=== PATIENT | female | born 1945 | race Caucasian/White ===

== ENCOUNTER → 2016-05-20 08:24 | Outpatient (CLI) | payer MEDICARE, BC ==
[2011-04-24 11:15] VITALS: BMI 21.3
== END | disposition home or self-care (01) ==
LOC: D.CT 08:00 → D.MRI 08:00 → D.CT 08:24
DX: M54.6 Pain in thoracic spine (principal)

== ENCOUNTER → 2017-07-26 13:28 | Outpatient (CLI) | payer MEDICARE, BC ==
[2011-04-24 11:15] VITALS: BMI 21.3
== END | disposition home or self-care (01) ==
LOC: D.MRI 13:28
DX: M54.6 Pain in thoracic spine (principal)

== ENCOUNTER 2017-12-21 16:12 | Observation (INO) | payer MEDICARE, BC ==
[~2017-12-21] VITALS: Ht 172.7 cm; Wt 55.0 kg
--- NOTE | ~2017-12-21 | OP ---
PATIENT NAME: RICARDO SANCHEZ MEDICAL RECORD: [id number] :43 LOCATION:[facility] ADMISSION DATE:12/21/17 SURGEON: JUAN C LAYTON MD DATE OF OPERATION: 12/22/2017 PROCEDURES: 1. Left heart catheterization. 2. Selective coronary angiography. 3. Left ventriculogram. INDICATION: Chest pain. PROCEDURE IN DETAIL: After informed consent was obtained and after a detailed description of the risks, benefits as well as alternative therapies, the patient elected to proceed with angiogram and heart catheterization. The right femoral area was prepped and draped in normal sterile fashion. Right femoral artery was cannulated via modified Seldinger technique with placement of 5-Estonian sheath. All catheters exchanged through this sheath. FINDINGS: Left ventriculogram was performed in standard 30-degree MCCLENDON view, reveals good cardiac wall motion throughout all segments. Overall ejection fraction estimated 60%. SELECTIVE CORONARY ANGIOGRAPHY: Left main, left anterior descending, left circumflex, right coronary artery are all smooth-walled vessels with no angiographic evidence of coronary artery disease. OVERALL IMPRESSION: 1. No angiographic evidence of coronary artery disease. 2. Normal left heart pressures. 3. Normal left ventricular systolic function. Chest pain is noncardiac in etiology. No further cardiac workup needs to be ascertained. TRANSINT:[id number] Voice Confirmation ID: [id number] DOCUMENT ID: [id number] JUAN C LAYTON MD at 1950 CC: [id number] DICTATION DATE: 12/22/17 1338 FORMING YARDAGE CONTROL OPERATOR: 12/22/17 1344 DIS IN 12/22/17 [address] [place] [address]
--- NOTE | ~2017-12-21 | DS ---
PATIENT:RICARDO JULIAN :43 MEDICAL RECORD: [id number] DISCHARGE SUMMARY ADMISSION DATE: 12/21/17 DISCHARGE DATE: 12/22/17 DATE OF DISCHARGE: 12/22/2017. DIAGNOSES: 1. Chest pain. 2. COPD. 3. Hypertension. 4. Normal cardiac catheterization this admission. HOSPITAL COURSE: Ms. Julian presents with chest pain, shortness of breath; however, cardiac catheterization is normal, most likely secondary to her chronic COPD, discharged home with no change in her medications. TRANSINT:[id number] Voice Confirmation ID: [id number] DOCUMENT ID: [id number] JUAN C LAYTON MD at 1950 CC: [id number] DICTATION DATE: 12/22/17 1337 LATIN AMERICAN STUDIES DIRECTOR: 12/22/17 1345 DIS IN 12/22/17 [id number] [place] [address]
--- NOTE | ~2017-12-21 | HP ---
PATIENT: RICARDO JULIAN MEDICAL RECORD: [id number] ACCOUNT: [id number] LOCATION:[address] : 43 ADMISSION DATE: 12/21/17 PCP: JOSÉ MIGUEL SUNSHINE MD HISTORY AND PHYSICAL EXAMINATION ADMITTING DIAGNOSES: 1. Chest pain compatible with unstable angina. 2. CONTRAST ALLERGY. 3. Chronic obstructive pulmonary disease. HISTORY OF PRESENT ILLNESS: Ms. Julian has no history of ischemic heart disease. She gets a chest pressure and extreme shortness of breath with any minimal exertion. This has been going on for 2 weeks in a rapidly progressive fashion. Two weeks ago, it took moderate exertion for her to get the chest pressure, now with even walking across the room she gets very typical anginal chest pressure radiating to her back and extreme shortness of breath. Her EKG is with no acute ST-T abnormalities. PHYSICAL EXAMINATION: GENERAL APPEARANCE: Well-nourished, well-developed, appears stated age. Level of distress, comfortable. PSYCHIATRIC: Mental status, alert, normal affect. Orientation, oriented to time, place and person. EYES: Lids and conjunctiva, noninjected. No discharge, no pallor. ENT: Lips, teeth, gums, normal dentition. Oropharynx, no cyanosis, no pallor. NECK: Carotid arteries, bilateral normal upstroke, no bruits, no thrills. JUGULAR VEINS: No jugular venous pressure or distention. CERVICAL LYMPH NODES: Nontender, nonenlarged. THYROID: Not enlarged. Nontender. No nodules. LUNGS: Respiratory effort, unlabored. CHEST: Normal curvature. No thoracic deformity. No chest wall tenderness. Percussion, resonant. Auscultation, clear. No wheezes, no rales, no rhonchi. CARDIOVASCULAR: Precordial exam, nondisplaced. No heaves or pericardial thrills. Rate and rhythm, regular. Heart sounds, normal S1, normal S2. No S3, no gallop, no rub. Systolic murmur, not heard. Diastolic murmur, not heard. EXTREMITIES: No cyanosis, no edema. Peripheral pulses, full and equal in all extremities, except as noted. No bruits appreciated. ABDOMEN: Soft, nondistended. Normal aorta. No bruit. Nontender. No masses. Liver, nontender, no hepatomegaly. Spleen, nontender, no splenomegaly. MUSCULOSKELETAL: No joint tenderness. No joint swelling. No erythema. NEUROLOGICAL: Normal gait, normal strength, normal tone. SKIN: Warm and dry. OVERALL IMPRESSION: Chest pressure in an increasing fashion. We will premedicate with prednisone, proceed with coronary angiography in the a.m. Further care depends upon the findings of the angiography. We will continue the lisinopril for her hypertension as well as the clonidine, continue her Plavix that she has and add aspirin. TRANSINT:[id number] Voice Confirmation ID: [id number] DOCUMENT ID: [id number] HISTORY AND PHYSICAL [id number] RICARDO JULIAN JEFFREY MD at 1335 CC: [id number] DICTATION DATE: 12/21/171809 FORK OPERATOR: 12/21/17 1843 ADM IN [facility] [address] [place] [address]
--- NOTE | ~2017-12-21 | HEMODYNAMI ---
PATIENT:RICARDO SANCHEZ MEDICAL RECORD: [id number] : 43 LOCATION:D. D.2126 ADMISSION DATE: 12/21/17 Generatedon:12/22/201713:38 Patient name: RICARDO SANCHEZ Patient #: [id number] SSN: D OB: 1945 Date of study: 12/22/2017 Page: Of Hemodynamic Procedure Report Patient Data Patient Demographics Procedure consent was obtained First Name: RICARDO Gender: Female Last Name: LAURA : 1945 Middle Initial: MORALES Age: 72 year(s) Patient #: [id number] Race: Unknown Additional ID: [id number] Contact details [address]: [address] [place] [address] [place] State: [place] City: [place] Zip code: [address] Past Medical History Allergies Allergen Reaction Date Comments Reported IV contrast dye 12/22/2017 Morphine 12/22/2017 Admission Admission Data Admission Date: 12/21/2017 Admission Time: 18:58 Admit Source: Other Room #: D.2126 Lab Results Lab Result Date: 12/22/2017 Lab Result Time: 0:00 Biochemistry Name Units Result Min Max BUN mg/dl 15 --(--*-)-- 7 18 Creatinine mg/dl 0.8 --(-*--)-- 0.6 1.3 CBC Name Units Result Min Max Hemoglobin g/dl 14.8 --(-*--)-- 13.5 17.5 Procedure Procedure Types Cath Procedure Diagnostic Procedure LHC LHC w/Coronaries Procedure Description Procedure Date Procedure Date: 12/22/2017 Procedure Start Time: 13:26 Procedure End Time: 13:37 Procedure Staff Name Function Alexy Lua MD Performing Physician Arturo Palacios RT Monitor Darshan Romero RT Scrub Jax Anne RN Nurse Procedure Data Cath Procedure Fluoroscopy Diagnostic fluoroscopy Total fluoroscopy Time: 0.9 time: 0.9 min min Diagnostic fluoroscopy Total fluoroscopy dose: dose: 78.31 mGy 78.31 mGy Contrast Material Contrast Material Type Amount (ml) Isovue 300 56 Entry Location Entry Primary Successful Side Size Upsize Upsize Entry Closure Succes sful Closure Location (Fr) 1 (Fr) 2 (Fr) Remarks Device Remarks Femoral Right 5 Fr Exoseal artery Estimated blood loss: 5 ml Diagnostic catheters Device Type Used For End Catheter Placement MULTIPACK Pigtail 5 Fr Procedure catheter MULTIPACK JL 4.0 5Fr Procedure catheter MULTIPACK 3DRC 5Fr Procedure catheter Procedure Complications No complications Procedure Medications Medication Administration Route Dosage 0.9% NaCl I.V. 100 ml/hr Oxygen etCO2 Nasal cannula 2 l/min Heparin Flush Bag added to field 2 bags (1000units/500ml NS) Lidocaine 2% added to field 20 Benadryl I.V. 50 mg Versed I.V. 2 mg Fentanyl I.V. 100 mcg Versed I.V. 1 mg Hemodynamics Rest HGB: 14.8 (g/dl) Heart Rate: 68 (bpm) Snapshots Pre Cath Intra NCS Post Cath Vital Signs Time Heart Resp SPO2 etCO2 NIBP (mmHg) Rhythm Pain Sedation Rate (ipm) (%) (mmHg) Status Level (bpm) 12:47:03 67 21 93 0 123/57(112) NSR 0 (11) 10(A) , No pain 12:51:21 74 21 93 0 118/73(96) NSR 0 (11) 10(A) , No pain 12:55:29 77 27 93 20.9 115/92(106) NSR 0 (11) 10(A) , No pain 12:59:45 74 20 94 18.7 125/69(90) NSR 0 (11) 10(A) , No pain 13:04:01 63 15 93 25.4 103/63(83) NSR 0 (11) 10(A) , No pain 13:08:17 67 17 94 18.7 97/55(75) NSR 0 (11) 10(A) , No pain 13:12:29 67 16 95 17.2 95/58(74) NSR 0 (11) 10(A) , No pain 13:16:39 73 17 95 15.7 94/60(80) NSR 0 (11) 10(A) , No pain 13:20:45 70 19 95 20.9 104/65(84) NSR 0 (11) 10(A) , No pain 13:24:57 68 19 95 23.2 105/62(91) NSR 0 (11) 10(A) , No pain 13:29:05 68 21 95 23.9 96/57(79) NSR 0 (11) 9(A) , No pain 13:33:12 65 19 96 20.2 101/64(85) NSR 0 (11) 9(A) , No pain Medications Time Medication Route Dose Verified Delivered Reason Notes Eff ectiveness by by 13:02:18 0.9% NaCl I.V. 100 Buffie Buffie Per ml/hr Heather Romero RN physician 13:03:21 Oxygen etCO2 2 Buffie Buffie Per Nasal l/min Heather Romero RN physician cannula 13:03:40 Heparin Flush added 2 Jax Jax used for Bag to bags Lorigan Lorigan procedure (1000units/500ml RN RN NS) 13:03:52 Lidocaine 2% added 20ml Jax Jax for local to vial Lorigan Lorigan anesthetic RN RN 13:07:39 Benadryl I.V. 50 mg Jax Jax Per Lorigan Lorigan physician RN RN 13:24:28 Versed I.V. 2 mg Jax Jax for Lorigan Lorigan sedation RN RN 13:24:38 Fentanyl I.V. 100 Jax Jax for mcg Lorigan Lorigan sedation RN RN 13:27:59 Versed I.V. 1 mg Jax Jax for Lorigan Lorigan sedation RN audio/visual manager Log Time Note 12:21:13 Informed consent obtained and on chart 12:21:16 Admit Source: Other 12:21:32 Darshan Romero RT(R) sent for patient. Start room use. 12:21:33 Time tracking: Regular hours (M-F 7:00 - 5:00) 12:21:37 Plan of Care:Hemodynamics will remain stable., Cardiac rhythm will remain stable., Comfort level will be maintained., Respiratory function will remain adequate., Patient/ family verbilizes understanding of procedure., Procedure tolerated without complication., Recovers from procedure without complications.. 12:34:51 Patient received from PCU to CCL 3 Alert and oriented. Tansferred to table in Supine position. 12:34:52 Warm blankets applied, and jessica hugger turned on for patient comfort. 12:34:53 Correct patient and procedure confirmed by team. 12:34:53 ECG and BP/O2 sat monitors applied to patient. 12:34:54 Pre-procedure instructions explained to patient. 12:34:55 Pre-op teaching completed and patient verbalized understanding. 12:34:56 Family in waiting room. 12:34:57 Patient NPO since Midnight. 12:38:39 Patient allergic to IV contrast dye 12:38:46 Patient allergic to Morphine 12:38:48 Is the patient allergic to Iodine/contrast media? Yes. 12:38:51 Was the patient premedicated? Yes 12:38:55 Is patient on blood thinner?Yes 12:38:58 ACC The patient was administered the following blood thiners within the last 24 hours: ACCPlavix 12:39:03 Patient diabetic? No. 12:39:04 ----Pre-sedation anethsthesia assessment.---- 12:39:07 Previous problem with sedation/anesthesia? No ? 12:39:08 Snore? Yes 12:39:09 Sleep apnea? Yes 12:39:11 Deviated septum? No 12:39:12 Opens mouth fully? Yes 12:39:13 Sticks out tongue? Yes 12:39:25 Airway obstruction? Yes COPD, EMPYHZEMIA 12:39:41 Dentures? Yes IN TIGHT 12:39:44 Pre procedure: right dorsailis pedis pulse 1+ Palpable, but thready & weak; easily obliterated 12:41:51 Vital chart was started 12:41:56 Rhythm: sinus rhythm 12:41:57 Full Disclosure recording started 12:42:10 H&P Date Dictated: 12/21/2017 Within 30 days and on chart.. 12:44:09 Modified Neftaly's test Ulnar > 7 seconds. 12:44:12 Patient pain scale 0/10 ?. 12:44:38 IV patent on arrival in right antecubital with 0.9% NaCl at 10ml/hr. 12:45:22 Lab Result : BUN 15 mg/dl 12:45:22 Lab Result : Creatinine 0.8 mg/dl 12:45:22 Lab Result : Hemoglobin 14.8 g/dl 12:45:26 Lab results completed and on chart. 12:45:29 Right groin area was prepped with chlora-prep and draped in sterile fashion 12:45:31 Alarms reviewed by R. N. 12:45:31 Sharps counted by scrub and verified by R.N. 12:52:32 Use device set Femoral Dx 12:52:36 Bag Decanter (2002) opened to sterile field. 12:52:36 ACIST Syringe (59205) opened to sterile field. 12:52:40 Medline Cath Pack ([id number]) opened to sterile field. 12:52:41 DIAGNOSTIC WIRE .035 260cm J wire (400422) opened to sterile field. 12:52:41 ACIST Hand Control (79480) opened to sterile field. 12:52:42 ACIST Manifold (13808) opened to sterile field. 12:52:43 Tegaderm 4 x 4 (1626W) opened to sterile field. 12:52:44 SHEATH Prelude 5Fr 0.035 (BOH-9I-00-035) opened to sterile field. 12:52:55 Baseline sample Acquired. 13:02:18 0.9% NaCl 100 ml/hr I.V. was administered by Xiang Romero RN; Per physician; 13:03:21 Oxygen 2 l/min etCO2 Nasal cannula was administered by Xiang Romero RN; Per physician; 13:03:40 Heparin Flush Bag (1000units/500ml NS) 2 bags added to field was administered by Jax Anne RN; used for procedure; 13:03:52 Lidocaine 2% 20ml vial added to field was administered by Jax Anne RN; for local anesthetic; 13:07:39 Benadryl 50 mg I.V. was administered by Jax Anne RN; Per physician; 13:08:05 Zero performed for pressure channel P1 13:08:14 Zero performed for pressure channel P1 13:08:21 Zero performed for pressure channel P1 13:08:27 Zero performed for pressure channel P1 13:23:55 Physician arrived 13::55 --------ALL STOP TIME OUT------ 13:23:56 Final Timeout: patient, procedure, and site verified with staff and physician. All members of the team are in agreement. 13:23:57 Right groin site verified by team. 13:24:02 Physical assessment completed. ASA score P 2 - A patient with mild systemic disease as per Alexy Lua MD. 13:24:04 Sedation plan: IV Moderate Sedation Medication:Versed, Fentanyl 13::28 Versed 2 mg I.V. was administered by Jax Anne RN; for sedation; ::38 Fentanyl 100 mcg I.V. was administered by Jax Anne RN; for sedation; 13:25:28 DIAGNOSTIC Multipack 5Fr catheter set (MV0386) opened to sterile field. 13::34 Procedure started. 13:26:40 Local anesthetic to right femoral artery with Lidocaine 2% by Alexy Lua MD.INITIAL ACCESS ONLY 13:26:50 A 5 Fr sheath was inserted into the Right Femoral artery 13:27:06 A MULTIPACK Pigtail 5 Fr catheter was advanced over the wire and used for Procedure. 13:27:59 Versed 1 mg I.V. was administered by Jax Anne RN; for sedation; ::04 LV gram done using MCCLENDON 13::08 Injector settings: Ml/sec: 10, Volume: 20, 13:28:24 EF : 60 % 13:28:28 LV hemodynamics recorded. 13:28:30 Catheter exchanged over wire. 13:28:34 A MULTIPACK JL 4.0 5Fr catheter was advanced over the wire and used for Procedure. 13:29:23 LCA angiography performed. 13:30:23 Catheter exchanged over wire. 13:30:32 A MULTIPACK 3DRC 5Fr catheter was advanced over the wire and used for Procedure. 13:31:10 RCA angiography performed. 13:31:11 Catheter removed. 13:31:13 EXOSEAL 5Fr (EX500) opened to sterile field. 13:31:48 Sheath removed intact; hemostasis achieved with Exoseal to the Right Femoral artery. 13:31:50 Procedure ended.(Physican Out) 13:33:42 Fluoroscopy time 00.90 minutes. 13:33:46 Flurop Dose total: 78.31 13:33:46 Fluoroscopy dose: 78.31 mGy 13:34:02 Contrast amount:Isovue 300 56ml. 13:34:03 Sharps counted by scrub and verified by R.N. 13:34:04 Insertion/operative site no bleeding no hematoma. 13:34:07 Post-op/insertion site Right Femoral artery dressed using a 4 x 4 and Tegaderm. 13:34:10 Post right femoral artery:stable, soft, clean and dry 13:34:12 Post Procedure Pulses reassessed and unchanged 13:34:14 Post-procedure physical assessment completed. ASA score P 2 - A patient with mild systemic disease as per Alexy Lua MD. 13:34:17 Post procedure rhythm: unchanged. 13:34:18 Estimated blood loss: 5 ml 13:34:19 Post procedure instruction explained to patient.Patient verbalizes understanding. 13:34:20 Patient needs reinforcement of post procedure teaching. 13:35:05 IV Extension Set opened to sterile field. 13:35:19 Procedure and supply charges have been captured, reviewed, submitted and are correct. 13:35:21 Procedure Complication : No complications 13:35:23 Vital chart was stopped 13:35:23 See physician's report for complete and final results. 13:37:42 Report given to Pre/Post Procedure Room. 13:37:44 Patient transfered to Pre/Post Procedure Room with Stretcher. 13:37:46 Procedure ended. 13:37:46 Full Disclosure recording stopped 13:37:50 End room use (Document Last) Device Usage Item Name Manufacture Quantity Catalog Number Hospital Part Current M inimal Lot# / Charge Number Stock Stock Serial# Code Bag Decanter Microtek 1 195811 67948 131609 5 () Medical Inc. ACIST Syringe Acist 1 95492 050006 594744 247661 2 0 (88836) Medical Systems Inc Medline Cath Cardinal 1 [id number] 506052 86091 144391 5 Pack Health ([id number]) DIAGNOSTIC WIRE St Derick 1 295221 892108 059048 801475 3 0 .035 260cm J wire (340947) ACIST Hand Acist 1 12434 211269 974824 910847 5 Control (27645) Medical Systems Inc ACIST Manifold Acist 1 33550 401406 946618 889514 5 (86511) Medical Systems Inc Tegaderm 4 x 4 3M 1 1626W 284193 385914 970045 5 (1626W) SHEATH Prelude Merit 1 XBE-2T-75-035 890555 130781 775556 5 5Fr 0.035 Medical (LUH-4W-91-035) MULTIPACK Cardinal 1 493978 5 Pigtail 5 Fr Health catheter MULTIPACK JL Cardinal 1 242089 5 4.0 5Fr Health catheter DIAGNOSTIC Cardinal 1 [id number] 901208 67455 316035 3 0 Multipack 5Fr Health catheter set (TB1234) MULTIPACK 3DRC Cardinal 1 952998 5 5Fr catheter Health EXOSEAL 5Fr Cardinal 1 EX500 580127 146682 890600 1 0 (EX500) Health IV Extension Hospira 1 57402-86 796825 39199 089344 5 Set Signature Audit Comins Stage Time Signature Unsigned Intra-Procedure 12/22/2017 Arturo Palacios 1:38:14 PM RT(R) Signatures Monitor : Arturo Palacios RT Signature : Date : Time : [address] [address]
[2017-12-21] MEDS ORDERED: LISINOPRIL5 MG PO (16:17)
[2017-12-21] MEDS ORDERED: PLAVIX75 MG PO ×2 (16:18→18:43)
[2017-12-21] MEDS ORDERED: HYDROCODON-ACE1 EAC7 PO (16:18)
[2017-12-21] MEDS ORDERED: IPRAT-ALBUT 0.5-3 ML UPD (16:18)
[2017-12-21] MEDS ORDERED: SYMBICORT 16010.2 GM INH (16:19)
[2017-12-21] MEDS ORDERED: CYCLOBENZAPRINE10 MG PO (16:19)
[2017-12-21] MEDS ORDERED: CATAPRES0.1 MG PO (16:19)
[2017-12-21 16:34] VITALS: BP 155/68
[2017-12-21 16:44] LABS: BASOPHILS 1.4 % (0-2); EOSINOPHILS 4.4 % (0-7); HEMATOCRIT 44.8 % (36.0-48.0); HEMOGLOBIN 14.8 g/dL (12-16); IMMATURE GRANULOCYTES 0.1 % (0-5); LYMPHOCYTES 30.5 % (15-50); MCH 31.2 pg (26.0-34.0); MCV 94.5 fL (80.0-100.0); MEAN PLATELET VOLUME 11.6 fL (7.4-10.4); NEUTROPHILS 55.6 % (40-80); PLATELET COUNT 196 10x3/uL (130-400); RBC 4.74 10x6/uL (4.00-5.40); RDW 15.5 % (11.5-14.5); WBC 8.8 10x3/uL (4.8-10.8)
[2017-12-21 17:17] LABS: ALBUMIN 3.6 g/dL (3.4-5.0); ALKALINE PHOSPHATASE 75 U/L (46-116); ALT (SGPT) 20 U/L (10-68); BILIRUBIN - TOTAL 0.31 mg/dL (0.2-1.3); CALC OSMOLALITY 279 mosm/kg (275-300); CALCIUM 8.6 mg/dL (8.5-10.1); CARBON DIOXIDE 23.5 mmol/L (21.0-32.0); CHLORIDE - SERUM 106 mmol/L (98-107); CREATININE - SERUM 0.8 mg/dL (0.6-1.3); GLUCOSE 90 mg/dL (74-106); POTASSIUM - SERUM 3.8 mmol/L (3.5-5.1); PROTEIN - SERUM 6.8 g/dL (6.4-8.2); SODIUM 140 mmol/L (136-145); UREA NITROGEN 15 mg/dL (7-18); eGFR NON AFRICAN AMERICAN 74 mL/min (90-120)
[2017-12-21 17:20] LABS: CKMB 2.3 U/L (0.0-3.6); CREATINE KINASE 60 UL (21-215); PRO BNP 117 pg/mL (0-125)
[2017-12-21 17:22] LABS: TROPONIN-I < 0.017 ng/mL (0.000-0.060)
[2017-12-21] MEDS ORDERED: FLUTICASONE PRO16 GM NASAL (18:45)
[2017-12-21] MEDS ORDERED: SINGULAIR 4 MG P4 MG PO (18:46)
[2017-12-21] MEDS ORDERED: MUCINEX DM ER1 EAC1 PO (18:49)
[2017-12-21 21:10] VITALS: BP 155/68
[2017-12-22 02:02] VITALS: BP 126/82
[2017-12-22 02:33] VITALS: BP 126/82; Ht 172.7 cm; Wt 55.0 kg
[2017-12-22] MEDS ORDERED: FIORICET-COD 51 EACH PO (02:52)
[2017-12-22] MEDS ORDERED: FLUTICASONE PRO16 GM NASAL (02:53)
[2017-12-22 06:23] VITALS: BP 137/82
[2017-12-22 07:54] VITALS: BP 113/82
[2017-12-22 08:02] LABS: ALBUMIN 3.6 g/dL (3.4-5.0); ALKALINE PHOSPHATASE 76 U/L (46-116); ALT (SGPT) 19 U/L (10-68); CALC OSMOLALITY 281 mosm/kg (275-300); CALCIUM 8.9 mg/dL (8.5-10.1); CARBON DIOXIDE 26.6 mmol/L (21.0-32.0); CHLORIDE - SERUM 107 mmol/L (98-107); CKMB 2.3 U/L (0.0-3.6); CREATINE KINASE 54 UL (21-215); CREATININE - SERUM 0.7 mg/dL (0.6-1.3); GLUCOSE 107 mg/dL (74-106); PROTEIN - SERUM 6.9 g/dL (6.4-8.2); SODIUM 141 mmol/L (136-145); UREA NITROGEN 15 mg/dL (7-18); eGFR NON AFRICAN AMERICAN 87 mL/min (90-120)
[2017-12-22 08:05] LABS: POTASSIUM - SERUM 4.8 mmol/L (3.5-5.1); TROPONIN-I < 0.017 ng/mL (0.000-0.060)
[2017-12-22 08:18] LABS: HEMATOCRIT 44.9 % (36.0-48.0); LYMPHOCYTES 22.1 % (15-50); MCH 30.9 pg (26.0-34.0); MCHC 33.4 g/dL (31.0-37.0); MCV 92.6 fL (80.0-100.0); MEAN PLATELET VOLUME 12.7 fL (7.4-10.4); NEUTROPHILS 72.4 % (40-80); PLATELET COUNT 196 10x3/uL (130-400); RBC 4.85 10x6/uL (4.00-5.40); RDW 14.7 % (11.5-14.5)
[2017-12-22 08:21] LABS: WBC 5.7 10x3/uL (4.8-10.8)
[2017-12-22 11:04] VITALS: BP 90/59
== END 2017-12-22 16:37 | disposition home or self-care (01) ==
LOC: D.ER 16:12 → D.EDHOLD 18:58 → D.M2 18:58 → OBSVTIME 21:00 → D.CLR 12-22 14:10
PROVIDERS: Family Medicine
DX: R07.89 Other chest pain (principal); I10 Essential (primary) hypertension; Z91.041 Radiographic dye allergy status; J44.9 Chronic obstructive pulmonary disease, unspecified

== ENCOUNTER → 2017-12-27 14:34 | Outpatient (CLI) | payer MEDICARE, BC ==
[2017-12-22 02:33] VITALS: BMI 18.4
[~2017-12-27 14:34] MED LIST: CATAPRES0.1 MG PO; CYCLOBENZAPRINE10 MG PO; FIORICET-COD 51 EACH PO; FLUTICASONE PRO16 GM NASAL; HYDROCODON-ACE1 EAC7 PO; IPRAT-ALBUT 0.5-3 ML UPD; LISINOPRIL5 MG PO; MUCINEX DM ER1 EAC1 PO; PLAVIX75 MG PO; SINGULAIR 4 MG P4 MG PO; SYMBICORT 16010.2 GM INH
== END | disposition home or self-care (01) ==
LOC: D.CT 14:34
DX: Z91.89 Other specified personal risk factors, not elsewhere classified (principal)

== ENCOUNTER → 2018-03-26 10:45 | Outpatient (CLI) | payer MEDICARE, BC ==
[2017-12-22 02:33] VITALS: BMI 18.4
== END | disposition home or self-care (01) ==
LOC: D.RT 10:45
DX: J44.9 Chronic obstructive pulmonary disease, unspecified (principal)

== ENCOUNTER 2018-04-12 16:20 | Inpatient (IN) | payer MEDICARE, BC ==
[~2018-04-12] VITALS: Ht 170.2 cm; Wt 54.9 kg
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
[2018-04-12 17:49] VITALS: BP 138/78; BMI 19.0
[2018-04-12 20:00] VITALS: BP 90/42
[2018-04-12 21:45] LABS: BASOPHILS 0.1 % (0-2); EOSINOPHILS 0.3 % (0-7); HEMATOCRIT 40.2 % (36.0-48.0); HEMOGLOBIN 13.3 g/dL (12-16); IMMATURE GRANULOCYTES 0.3 % (0-5); LYMPHOCYTES 11.4 % (15-50); MCH 31.7 pg (26.0-34.0); MCHC 33.1 g/dL (31.0-37.0); MCV 95.9 fL (80.0-100.0); MEAN PLATELET VOLUME 11.7 fL (7.4-10.4); MONOCYTES 8.7 % (2-11); NEUTROPHILS 79.2 % (40-80); PLATELET COUNT 184 10x3/uL (130-400); RBC 4.19 10x6/uL (4.00-5.40); RDW 13.5 % (11.5-14.5); WBC 16.4 10x3/uL (4.8-10.8)
[2018-04-12 21:56] LABS: ALBUMIN 2.9 g/dL (3.4-5.0); ANION GAP 14.6 mmol/L (8-16); BILIRUBIN - TOTAL 0.78 mg/dL (0.2-1.3); CALCIUM 8.5 mg/dL (8.5-10.1); CARBON DIOXIDE 24.1 mmol/L (21.0-32.0); CREATININE - SERUM 0.9 mg/dL (0.6-1.3); POTASSIUM - SERUM 3.7 mmol/L (3.5-5.1); PROTEIN - SERUM 6.1 g/dL (6.4-8.2)
[2018-04-13] VITALS: BP 94/46
[2018-04-13 04:00] VITALS: BP 100/56
[2018-04-13 04:24] LABS: BASOPHILS 0.1 % (0-2); EOSINOPHILS 0.3 % (0-7); HEMATOCRIT 39.1 % (36.0-48.0); HEMOGLOBIN 12.7 g/dL (12-16); IMMATURE GRANULOCYTES 0.3 % (0-5); LYMPHOCYTES 12.4 % (15-50); MCH 31.3 pg (26.0-34.0); MCHC 32.5 g/dL (31.0-37.0); MCV 96.3 fL (80.0-100.0); MONOCYTES 10.5 % (2-11); NEUTROPHILS 76.4 % (40-80); PLATELET COUNT 177 10x3/uL (130-400); RBC 4.06 10x6/uL (4.00-5.40); RDW 13.6 % (11.5-14.5); WBC 15.6 10x3/uL (4.8-10.8)
[2018-04-13 04:41] LABS: ALBUMIN 2.6 g/dL (3.4-5.0); ANION GAP 12.9 mmol/L (8-16); BILIRUBIN - TOTAL 0.75 mg/dL (0.2-1.3); CARBON DIOXIDE 22.6 mmol/L (21.0-32.0); CREATININE - SERUM 0.8 mg/dL (0.6-1.3); POTASSIUM - SERUM 3.5 mmol/L (3.5-5.1); PROTEIN - SERUM 5.6 g/dL (6.4-8.2)
[2018-04-13 07:00] VITALS: BP 96/53
[2018-04-13 10:34] VITALS: Ht 170.2 cm; Wt 54.9 kg
[2018-04-13 13:57] VITALS: BP 102/56
[2018-04-13 16:11] VITALS: BP 100/56
[2018-04-13 20:00] VITALS: BP 100/54
[2018-04-14 04:00] VITALS: BP 128/53
[2018-04-14 05:39] LABS: BASOPHILS 0.1 % (0-2); EOSINOPHILS 0 % (0-7); HEMATOCRIT 38.5 % (36.0-48.0); HEMOGLOBIN 12.3 g/dL (12-16); IMMATURE GRANULOCYTES 0.5 % (0-5); LYMPHOCYTES 7.1 % (15-50); MCH 31.2 pg (26.0-34.0); MCHC 31.9 g/dL (31.0-37.0); MCV 97.7 fL (80.0-100.0); MEAN PLATELET VOLUME 11.7 fL (7.4-10.4); MONOCYTES 3.6 % (2-11); NEUTROPHILS 88.7 % (40-80); PLATELET COUNT 183 10x3/uL (130-400); RBC 3.94 10x6/uL (4.00-5.40); RDW 13.7 % (11.5-14.5)
[2018-04-14 05:44] LABS: WBC 9.9 10x3/uL (4.8-10.8)
[2018-04-14 05:56] LABS: ALBUMIN 2.4 g/dL (3.4-5.0); ALKALINE PHOSPHATASE 74 U/L (46-116); BILIRUBIN - TOTAL 0.32 mg/dL (0.2-1.3); CALCIUM 8.5 mg/dL (8.5-10.1); CARBON DIOXIDE 20.6 mmol/L (21.0-32.0); CHLORIDE - SERUM 110 mmol/L (98-107); CREATININE - SERUM 0.7 mg/dL (0.6-1.3); PROTEIN - SERUM 5.7 g/dL (6.4-8.2); SODIUM 140 mmol/L (136-145); UREA NITROGEN 9 mg/dL (7-18); eGFR NON AFRICAN AMERICAN 87 mL/min (90-120)
[2018-04-14 05:58] LABS: ALT (SGPT) 33 U/L (10-68); CALC OSMOLALITY 281 mosm/kg (275-300); GLUCOSE 175 mg/dL (74-106)
[2018-04-14 10:19] VITALS: BP 108/53
[2018-04-14] MEDS ORDERED: LEVAQUIN750 MG PO (13:20)
[2018-04-14] MEDS ORDERED: PREDNISONE10 MG PO (13:21)
--- NOTE | 2018-04-16 09:03 | MORECARE ---
CASE MANAGEMENT DISCHARGE SUMMARY PATIENT: RICARDO SANCHEZ UNIT: [id number] ADM DATE: 04/12/18 AGE: 72 : 44 SEX: F ROOM/BED: D.2106 AUTHOR: LAW FERNANDEZ PHYSICIAN: REFERRING PHYSICIAN: JOSÉ MIGUEL SUNSHINE MD DATE OF SERVICE: 04/16/18 Discharge Plan Patient Name: RICARDO SANCHEZ Facility: [facility]:[place] : 1945 Planned Disposition: Home Anticipated Discharge Date: 04/14/18 Discharge Date: 04/14/2018 Expected LOS: 2 Initial Reviewer: [email or web address] Initial Review Date: 04/16/2018 Generated: 04/16/18 10:03 am Patient Name: RICARDO SANCHEZ Page [phone] at 0903 All edits/amendments must be made on the electronic document DICTATION DATE: 04/16/18901 DEXTRINE MIXER: DM 04/16/18901 RPT#: [id number] DC DATE:04/14/18 STATUS: DIS IN [facility] [address] [place] [address] END OF REPORT
== END 2018-04-14 15:50 | disposition home or self-care (01) | DRG 190 ==
LOC: D.M2 16:20
PROVIDERS: Family Medicine; ADMIT Family Medicine Adult Medicine
DX: J44.0 Chronic obstructive pulmonary disease with (acute) lower respiratory infection (principal); J18.1 Lobar pneumonia, unspecified organism; J40 Bronchitis, not specified as acute or chronic; E11.9 Type 2 diabetes mellitus without complications; I10 Essential (primary) hypertension; M81.0 Age-related osteoporosis without current pathological fracture; G43.909 Migraine, unspecified, not intractable, without status migrainosus; Z86.73 Personal history of transient ischemic attack (TIA), and cerebral infarction without residual deficits

== ENCOUNTER 2018-12-21 12:51 | Emergency (ER) | payer MEDICARE, BC ==
[~2018-12-21] VITALS: Ht 170.2 cm; Wt 54.5 kg
[~2018-12-21 12:51] MED LIST changes: +LEVAQUIN750 MG PO; +PREDNISONE10 MG PO
[2018-12-21 12:53] VITALS: Ht 170.2 cm; Wt 54.5 kg
[2018-12-21 13:47] LABS: BASOPHILS 0.5 % (0-2); EOSINOPHILS 1.4 % (0-7); HEMATOCRIT 40.3 % (36.0-48.0); HEMOGLOBIN 13.3 g/dL (12-16); IMMATURE GRANULOCYTES 0.2 % (0-5); LYMPHOCYTES 19.7 % (15-50); MCH 30.4 pg (26.0-34.0); MEAN PLATELET VOLUME 11.7 fL (7.4-10.4); MONOCYTES 5.6 % (2-11); NEUTROPHILS 72.6 % (40-80); PLATELET COUNT 212 10x3/uL (130-400); RBC 4.38 10x6/uL (4.00-5.40); RDW 14.1 % (11.5-14.5); WBC 8.5 10x3/uL (4.8-10.8)
[2018-12-21 13:56] LABS: APTT 28.8 SECONDS (22.8-39.4); INR 1.09 (0.85-1.17); PROTIME 13.6 SECONDS (11.6-15.0)
[2018-12-21 14:04] LABS: ALBUMIN 3.5 g/dL (3.4-5.0); ALKALINE PHOSPHATASE 81 U/L (46-116); ALT (SGPT) 15 U/L (10-68); BILIRUBIN - TOTAL 0.48 mg/dL (0.2-1.3); CALC OSMOLALITY 286 mosm/kg (275-300); CARBON DIOXIDE 28.9 mmol/L (21.0-32.0); CHLORIDE - SERUM 108 mmol/L (98-107); CREATININE - SERUM 0.7 mg/dL (0.6-1.3); POTASSIUM - SERUM 5.2 mmol/L (3.5-5.1); PROTEIN - SERUM 6.4 g/dL (6.4-8.2); SODIUM 145 mmol/L (136-145); UREA NITROGEN 7 mg/dL (7-18); eGFR NON AFRICAN AMERICAN 87 mL/min (90-120)
[2018-12-21 14:10] LABS: GLUCOSE 97 mg/dL (74-106)
[2018-12-21] MEDS ORDERED: BUTALB-APAP-CA1 EACH PO (14:26)
[2018-12-21 16:33] VITALS: BP 186/92
== END 2018-12-21 16:33 | disposition home or self-care (01) ==
LOC: D.ER 12:51
PROVIDERS: Family Medicine
DX: G43.909 Migraine, unspecified, not intractable, without status migrainosus (principal); F17.210 Nicotine dependence, cigarettes, uncomplicated; E11.9 Type 2 diabetes mellitus without complications; I10 Essential (primary) hypertension; J44.9 Chronic obstructive pulmonary disease, unspecified

== ENCOUNTER → 2019-03-12 08:24 | Outpatient (CLI) | payer MEDICARE, BC ==
[2018-12-21 12:53] VITALS: BMI 18.8
[~2019-03-12 08:24] MED LIST changes: +BUTALB-APAP-CA1 EACH PO
== END | disposition home or self-care (01) ==
LOC: D.RT 08:24
PROVIDERS: ATTEND Internal Medicine Pulmonary Disease
DX: J44.9 Chronic obstructive pulmonary disease, unspecified (principal)

== ENCOUNTER → 2019-05-16 10:27 | Outpatient (CLI) | payer MEDICARE, BC ==
[2018-12-21 12:53] VITALS: BMI 18.8
== END | disposition home or self-care (01) ==
LOC: D.RT 10:27
PROVIDERS: ATTEND Internal Medicine Pulmonary Disease
DX: J44.9 Chronic obstructive pulmonary disease, unspecified (principal)

== ENCOUNTER → 2019-06-13 14:03 | Outpatient (CLI) | payer MEDICARE, BC ==
[2018-12-21 12:53] VITALS: BMI 18.8
== END | disposition home or self-care (01) ==
LOC: D.CT 14:03
PROVIDERS: ATTEND Nurse Practitioner Family
DX: R93.89 Abnormal findings on diagnostic imaging of other specified body structures (principal)

== ENCOUNTER 2019-07-01 08:00 | Outpatient (CLI) | payer MEDICARE, BC ==
[2018-12-21 12:53] VITALS: BMI 18.8
[~2019-07-01 08:00] MED LIST changes: -SINGULAIR 4 MG P4 MG PO; +SINGULAIR10 MG PO
[2019-07-01] MEDS ORDERED: GABAPENTIN100 MG PO (15:22)
[2019-07-01] MEDS ORDERED: HYDROCODON-ACE1 EA10 PO (15:23)
[2019-07-01] MEDS ORDERED: VENTOLIN HFA [SP8 GM INH (15:26)
[2019-07-01 16:07] LABS: HEMATOCRIT 40.9 % (36.0-48.0); MCH 29.9 pg (26.0-34.0); MCHC 31.8 g/dL (31.0-37.0); MEAN PLATELET VOLUME 11.5 fL (7.4-10.4); RBC 4.35 10x6/uL (4.00-5.40); RDW 14.6 % (11.5-14.5); WBC 7.4 10x3/uL (4.8-10.8)
[2019-07-01 16:12] LABS: INR 0.92 (0.85-1.17); PROTIME 12.3 SECONDS (11.6-15.0)
[2019-07-01 16:13] LABS: APTT 25.2 SECONDS (22.8-39.4)
[2019-07-01 16:19] LABS: ALBUMIN 3.5 g/dL (3.4-5.0); ALKALINE PHOSPHATASE 72 U/L (30-120); ALT (SGPT) 21 U/L (10-68); BILIRUBIN - TOTAL 0.29 mg/dL (0.2-1.3); CALC OSMOLALITY 286 mosm/kg (275-300); CARBON DIOXIDE 28.3 mmol/L (21.0-32.0); CHLORIDE - SERUM 109 mmol/L (98-107); CREATININE - SERUM 0.7 mg/dL (0.6-1.3); GLUCOSE 87 mg/dL (74-106); POTASSIUM - SERUM 4.8 mmol/L (3.5-5.1); PROTEIN - SERUM 6.6 g/dL (6.4-8.2); SODIUM 144 mmol/L (136-145); UREA NITROGEN 16 mg/dL (7-18); eGFR NON AFRICAN AMERICAN 86 mL/min (90-120)
[2019-07-01 16:48] LABS: BILIRUBIN NEGATIVE (NEGATIVE); GLUCOSE NEGATIVE (NEGATIVE); KETONE NEGATIVE (NEGATIVE); NITRITE NEGATIVE (NEGATIVE); UROBILINOGEN NORMAL (NORMAL)
[2019-07-01 16:50] LABS: RED CELLS - URINE OCC /hpf (0-5); WHITE CELLS - URINE OCC /hpf (NEGATIVE)
== END 2019-07-01 08:01 | disposition home or self-care (01) ==
LOC: D.PAN 08:00 → D.SDCHOLD 07-03 11:30 → EDSTATUS 07-10 11:30 → D.SDCHOLD 07-10 11:30
PROVIDERS: ATTEND Internal Medicine Cardiovascular Disease
DX: I65.29 Occlusion and stenosis of unspecified carotid artery (principal)

== ENCOUNTER 2019-08-13 09:45 | Inpatient (IN) | payer MEDICARE, BC ==
[~2019-08-13] VITALS: Ht 170.2 cm; Wt 60.1 kg
[~2019-08-13 09:45] MED LIST changes: +GABAPENTIN100 MG PO; +HYDROCODON-ACE1 EA10 PO; +VENTOLIN HFA [SP8 GM INH
[2019-08-13 11:14] LABS: APTT 26.7 SECONDS (22.8-39.4); INR 0.93 (0.85-1.17); PROTIME 12.5 SECONDS (11.6-15.0)
[2019-08-13 11:22] LABS: ALBUMIN 3.8 g/dL (3.4-5.0); ALKALINE PHOSPHATASE 88 U/L (30-120); ALT (SGPT) 21 U/L (10-68); BILIRUBIN - TOTAL 0.49 mg/dL (0.2-1.3); CALC OSMOLALITY 278 mosm/kg (275-300); CALCIUM 9.3 mg/dL (8.5-10.1); CARBON DIOXIDE 26.9 mmol/L (21.0-32.0); CHLORIDE - SERUM 104 mmol/L (98-107); CREATININE - SERUM 0.7 mg/dL (0.6-1.3); GLUCOSE 87 mg/dL (74-106); POTASSIUM - SERUM 4.7 mmol/L (3.5-5.1); PROTEIN - SERUM 7.2 g/dL (6.4-8.2); SODIUM 141 mmol/L (136-145); UREA NITROGEN 11 mg/dL (7-18); eGFR NON AFRICAN AMERICAN 86 mL/min (90-120)
[2019-08-13 11:37] LABS: HEMATOCRIT 42.7 % (36.0-48.0); HEMOGLOBIN 13.4 g/dL (12-16); MCH 29.4 pg (26.0-34.0); MCHC 31.4 g/dL (31.0-37.0); MCV 93.6 fL (80.0-100.0); MEAN PLATELET VOLUME 12.1 fL (7.4-10.4); RBC 4.56 10x6/uL (4.00-5.40); RDW 14.5 % (11.5-14.5); WBC 7.6 10x3/uL (4.8-10.8)
[2019-08-13 13:07] LABS: BACTERIA FEW /hpf (NEGATIVE); BILIRUBIN NEGATIVE (NEGATIVE); EPITHELIAL CELLS 0-5 /hpf (0-5); GLUCOSE NEGATIVE (NEGATIVE); KETONE NEGATIVE (NEGATIVE); NITRITE NEGATIVE (NEGATIVE); RED CELLS - URINE RARE /hpf (0-5); UROBILINOGEN NORMAL (NORMAL); WHITE CELLS - URINE 0-5 /hpf (NEGATIVE)
[2019-08-13 13:08] LABS: AMORPHOUS SEDIMENT <1+ /lpf (NONE SEEN)
[2019-08-14] VITALS (37 sets, daily range): BP systolic 98–150; BP diastolic 38–86; BMI 18.3
--- NOTE | 2019-08-14 11:36 | NUR ---
RECEIVED PATIENT FROM OR, PATIENT LETHARGIC BUT AROUSES AND FOLLOWS COMMANDS. ORIENTED X 4, ART LINE TO LEFT RADIAL, ZEROED AND LEVELED, BP 98/50 (64), GOOD WAVEFORM, LEFT IJ CVL WITH PLASMOLYTE INFUSING, RIGHT CAROTID ENDARTECTOMY WITH DRESSING C/D/I, MELIDA DRAIN WITH SMALL AMOUNT OF BLOODY DRAINAGE NOTED, BULB COMPRESSED, DRESSING C/D/I. OSBORN CATH IN PLACE WITH YELLOW CLEAR URINE OUTPUT NOTED. CVP LEVELED AND ZEROED 0. SPO2 - 90% ON NC AT 6LPM. RR - 14, SHALLOW, NON LABORED, BBS - CLEAR, DIMINISHED IN BASES. CM - NSR RATE OF 70, NO ECTOPY NOTED. SPO2 LEFT HEMISPHERE 66% AND RIGHT HEMISPHERE 59%. HEAD TO TOE ASSESSMENT COMPLETED.
--- NOTE | 2019-08-14 12:13 | NUR ---
CVL LEFT IJ DRESSING CHANGED, LEFT HEMISPHERE SPO2 - 71% AND RIGHT HEMISPHERE SPO2 - 65%.
--- NOTE | 2019-08-14 12:18 | NUR ---
XRAY AT ROOM FOR CXR.
--- NOTE | 2019-08-14 12:45 | NUR ---
DR. BOYLE AT ROOM AND PLACED RUSTY CLOSE THORACIC SEAL TO LEFT UPPER CHEST FOR PNEUMOTHORAX. VSS.
--- NOTE | 2019-08-14 13:30 | NUR ---
LEFT HEMISPHERE SPO2 - 75% AND RIGHT HEMISPHERE SPO2 - 73%. PATIENT SFPO2 - 97% ON 4 LPM VIA NC, DECREASED TO 2 LPM WITH SPO2 96%, RESTING QUIETLY, VSS.
--- NOTE | 2019-08-14 14:00 | NUR ---
PATIENT RESTING QUIETLY, EASILY AROUSED. VSS.
--- NOTE | 2019-08-14 14:40 | NUR ---
SPO2 LEFT HEMISPHERE 71%, SPO2 RIGHT HEMISPHERE 70%. VSS.
--- NOTE | 2019-08-14 15:17 | NUR ---
REASSESSMENT COMPLETED. VSS. LEFT HEMISPHERE SPO2 - 76%, RIGHT HEMISPHERE SPO2 -76%.
--- NOTE | 2019-08-14 15:43 | NUR ---
DR. PALOMO AT ROOM UPDATED AND EXAMINES PATIENT.
--- NOTE | 2019-08-14 17:09 | NUR ---
PATIENT RESTING QUIETLY, GIVEN COFFEE PER REQUEST.
--- NOTE | 2019-08-14 18:09 | NUR ---
PATIENT RESTING QUIELTY, VSS. EASILY AROUSED, ALERT AND ORIENTED X 4.
--- NOTE | 2019-08-14 19:26 | NUR ---
PT RECEIVED WITH EYES OPEN. COMPLAINS OF DISCOMFORT WITH PAIN MEDICATION ADMINISTERED BY OUTGOING NURSE, WILL REASSESS AND ADMINISTER PER MAR. VITAL SIGNS STABLE. NO S/S OF DISTRESS. REPOSITIONED PER REQUEST. PT ALERT AND ORIENTED. CALL LIGHT IN REACH. WILL CONTINUE TO OBSERVE.
--- NOTE | 2019-08-14 23:59 | NUR ---
CEREBRAL OXIMITRY 1929- LEFT HEMISPHERE 74% RIGHT HEMISPHERE 78% 2029- 77% 69% 2129- 61% 60% 2229- 75% 77% 2329- 77% 74%
[2019-08-15] VITALS (46 sets, daily range): BP systolic 96–154; BP diastolic 44–76
--- NOTE | 2019-08-15 07:00 | NUR ---
PT REPORT RECEIVED FROM SECURITY COMPLIANCE SPECIALIST NURSE. NO ACUTE SIGNS OF DISTRESS NOTED. SHIFT ASSESSMENT COMPLETED. WILL CONTINUE TO MONITOR
--- NOTE | 2019-08-15 07:18 | NUR ---
cerebral oximitry 0030 LEFT HEMISPHERE 81% RIGHT HEMISPHIRE 75% 0130 83% 75% 0230 66% 65% 0330 74% 72% 0430 74% 72% 0530 75% 74% 0615 73% 70%
--- NOTE | 2019-08-15 08:45 | NUR ---
DR BOYLE'S NURSE AT BEDSIDE. UPDATE GIVEN. NEW ORDERS RECEIVED TO D/C OSBORN AND ART LINE. ALSO ORDERED TO STOP NITRO AND D/C CVP MONITORING.
--- NOTE | 2019-08-15 09:35 | NUR ---
PHYSICAL THERAPY IN ROOM. ASSISTED PT UP INTO BEDSIDE CHAIR. PT TOLERATED WELL. WILL CONTINUE TO MONITOR
--- NOTE | 2019-08-15 10:15 | NUR ---
DR BOYLE IN ROOM. REMOVED MELIDA DRAIN FROM RT NECK. PT TOLERATED WELL. WILL CONTINUE TO MONITOR
--- NOTE | 2019-08-15 10:32 | NUR ---
DR HANDY CALLED FOR CONSULT.
--- NOTE | 2019-08-15 10:35 | NUR ---
SPOKE WITH ELOISA HANDY'S NURSE. NOTIFIED HER OF PT CONSULT. WILL CONTINUE TO MONITOR
--- NOTE | 2019-08-15 13:53 | NUR ---
PHYSICAL THERAPY IN ROOM. AMBULATING PT. PT TOLERATING WELL. NO SIGNS OF DISTRESS NOTED. WILL CONTINUE TO MONITOR
--- NOTE | 2019-08-15 16:44 | NUR ---
PT RESTING IN BED. STATED SHE IS IN PAIN, HOWEVER, DOES NOT WANT PAIN MEDICATION. WANTS TO WAIT UNTIL LATER SO SHE CAN SLEEP TONIGHT. INSTRUCTED PT TO USE CALL LIGHT TO REACH NURSE.
--- NOTE | 2019-08-15 19:00 | NUR ---
SHIFT ASSESSMENT COMPLETED. PT CARE ASSUMED. MONITORS ON AND WORKING, PT AWAKE AND ALERT, PACS NOTED ON HEART MONITOR. SEE FLOW SHEET FOR FURTHER DETAILS. WILL CONTINUE TO OBSERVE.
[2019-08-16] VITALS (25 sets, daily range): BP systolic 90–147; BP diastolic 48–79; Ht 170.2 cm; Wt 60.1 kg
--- NOTE | 2019-08-16 01:00 | NUR ---
PT UP TO BATHROOM WITH MINIMAL ASSIST, PT AWAKE AND ALERT, MONITORS ON AND WORKING, WILL CONTINUE TO OBSERVE.
--- NOTE | 2019-08-16 03:00 | NUR ---
CHG AND LINEN BATH DONE. MONITORS ON AND WORKING, VITALS STABLE. SEE FLOW SHEET FOR FURTHER DETAILS. WILL CONTINUE TO OBSERVE.
--- NOTE | 2019-08-16 07:00 | NUR ---
PT REPORT RECEIVED FROM AREA PLANT MANAGER NURSE. NO ACUTE SIGNS OF DISTRESS NOTED. RT NECK DRESSING HAS SOME DRIED BLOOD. NO ACITVE SIGNS OF BLEEDING. PT COMPLAINING OF PLEURISY PAIN IN HER LEFT SIDE. WILL CONTINUE TO MONITOR
--- NOTE | 2019-08-16 09:00 | NUR ---
DR FRAGOSO NURSE IN ROOM. UPDATE GIVEN. WILL CONTINUE TO MONITOR
--- NOTE | 2019-08-16 09:30 | NUR ---
DR BOYLE IN ROOM. ASSESSED NECK DRESSING. STATED TO LEAVE WEB ASSISTANT AND TO D/C PLASMALYTE. WILL CONTINUE TO MONITOR
--- NOTE | 2019-08-16 13:01 | NUR ---
PT RESTING IN BED. NO COMPLAINTS NOTED AT THIS TIME. PT AROUSES EASILY. WILL CONTINUE TO MONITOR
--- NOTE | 2019-08-16 13:20 | NUR ---
PHYSICAL THERAPY IN ROOM. PT UP AND WALKING DOWN HALLWAY. BACK IN BEDSIDE CHAIR. NO COMPLAINTS NOTED AT THIS TIME. WILL CONTINUE TO MONITOR
--- NOTE | 2019-08-16 14:30 | NUR ---
PT BEING WHEELED DOWN TO CT.
--- NOTE | 2019-08-16 14:51 | NUR ---
PT BACK IN ROOM SITTING IN BEDSIDE CHAIR. NO COMPLAINTS NOTED. VSS. WILL CONTINUE TO MONITOR
--- NOTE | 2019-08-16 18:10 | MORECARE ---
CASE MANAGEMENT DISCHARGE SUMMARY PATIENT: RICARDO SANCHEZ UNIT: [id number] ADM DATE: 08/14/19 AGE: 74 : 44 SEX: F ROOM/BED: [facility] AUTHOR: LAW FERNANDEZ PHYSICIAN: REFERRING PHYSICIAN: MARGIE BOYLE MD DATE OF SERVICE: 08/16/19 Discharge Plan Patient Name: RICARDO SANCHEZ Facility: [facility]:[place] : 1945 Planned Disposition: Home Anticipated Discharge Date: Discharge Date: Expected LOS: Initial Reviewer: [email or web address] Initial Review Date: 08/13/2019 Generated: 08/16/19 7:10 pm Patient Name: RICARDO SANCHEZ Page [phone] at 1810 All edits/amendments must be made on the electronic document DICTATION DATE: 08/16/191809 SILK SPOTTER: KAMRON 08/16/191809 RPT#: [id number] DC DATE: STATUS: ADM IN [facility] [address] [place] [address] END OF REPORT
--- NOTE | 2019-08-16 18:18 | MORECARE ---
CASE MANAGEMENT DISCHARGE SUMMARY PATIENT: RICARDO SANCHEZ UNIT: [id number] ADM DATE: 08/14/19 AGE: 74 : 44 SEX: F [facility] AUTHOR: JIM,DOC PHYSICIAN: REFERRING PHYSICIAN: MARGIE BOYLE MD DATE OF SERVICE: 08/16/19 Discharge Plan Patient Name: RICARDO SANCHEZ Facility: [facility]:[place] : 1945 Planned Disposition: Home Anticipated Discharge Date: Discharge Date: Expected LOS: Initial Reviewer: [email or web address] Initial Review Date: 08/13/2019 Generated: 08/16/19 7:17 pm Comments DCP- Discharge Planning Updated by [email or web address]: Suzanne Sparks on 08/16/19 5:[address] Patient Name: RICARDO SANCHEZ Admission Status: Elective Accout number: [id number] Admission Date: 08-14-2019 : 1945 Admission Diagnosis: Attending: MARGIE BOYLE Current LOS: 2 Anticipated DC Date: Planned Disposition: Home Primary Insurance: MEDICARE A & B Discharge Planning Comments: CM met with patient to complete initial dc planning assessment. CM educated patient on the CM role and verbal consent given by patient to complete assessment. Patient lives at home with her daughter where she is independent with her care. At discharge patient plans to return home and feels this is a safe discharge. CM discussed availability of home health, rehab services, and medical equipment. Her daughter will be her wrecking car driver home. Patient has home o2 concentrator ( [employer] ) Patient denied known discharge needs at this time. CM will continue to follow and will assist as needed with dc plans/needs. Oxyacetylene Cutter: Suzanne Sparks DCPIA - Discharge Planning Initial Assessment Updated by [email or web address]: Suzanne Sparks on 08/16/19 6:12 pm * Is the patient Alert and Oriented? Yes * How many steps to enter\exit or inside your home? * PCP [facility] * Pharmacy [facility] * Preadmission Environment Home with Family * ADLs Independent * Other Equipment WALKER, ELEVATED TOILET, WALK IN SHOWER, CANE, CRUTCHES, 02 @ / [employer] * List name and contact numbers for known caregivers / representatives who currently or will assist patient after discharge: ORALIA HELM - DAUGHTER - [phone] * Verbal permission to speak to the caregivers and representatives has been obtained from the patient. Yes * Community resources currently utilized None * Additional services required to return to the preadmission environment? No * Can the patient safely return to the preadmission environment? Yes * Has this patient been hospitalized within the prior 30 days at any hospital? No Last DP export: 08/16/19 5:10 pm Patient Name: RICARDO SANCHEZ Page [phone] at 1818 All edits/amendments must be made on the electronic document DICTATION DATE: 08/16/191816 VACUUM COOKER OPERATOR: KAMRON 08/16/191816 RPT#: [id number] DC DATE: STATUS: ADM IN [facility] [address] [place] [address] END OF REPORT
--- NOTE | 2019-08-16 19:50 | NUR ---
RECIVED REPORT AT BEDSIDE. PT IS A&OX4 SITTING UP IN BED ON HER RIGHT SIDE. SHE C/O OF "MY LEFT LOWER CHEST IS HURTING". I ASKED HER IF THIS IT NEW SHE VOICES"NO NO, ITS PLURISY PAIN THAT IV HAD, KNOWS ABOUT IT". LUNG SOUNDS ARE CTA BILAT C SLIGHT DIMINISHED SOUND IN THE LLL. HEIMLICH VALVE IN THE RORY IS CDI AND FUNCTIONING WHEN PT COUGHES. VSS. PT HAS NORCO 10 PRN FOR PAIN AND CAN HAVE ONE NOW, SO I JUST ADMINSITERED AND DOC IN JUN. WILL CONITNUE TO MONITOR THIS. PERFORMED FULL ASSESSMENT AND WILL DOC IN FLOW SHEET. BED IS LOW,SIDE RAILSX2, CALL LIGHT WITHIN REACH. WILL CONITNUE TO MONITOR
--- NOTE | 2019-08-16 21:12 | NUR ---
PT IS RESTING IN BED C EYES CLOSED ON RIGHT SIDE. PT IS A&OX4 AND VOICES "ITS BETTER" WHEN ASKED IF STILL IN PAIN. VSS. WILL ADMINSITER MEDS ORDERED AND DOC ON JUN. NO NEEDS OR C/O VOICED. BED IS LOW,SIDE RAILSX2, CALL LIGHT WITHIN REACH WILL CONTINUE TO MONITOR
--- NOTE | 2019-08-16 23:01 | NUR ---
PT IS RESTING IN BED ON RIGHT SIDE WITH EYES CLOSED. VSS. BED IS LOW,SIDE RAILSX2,CALL LIGHT WITHIN REACH. WILL CONINTUE TO MONITOR
[2019-08-17] VITALS (24 sets, daily range): BP systolic 96–139; BP diastolic 34–88
--- NOTE | 2019-08-17 00:45 | NUR ---
PT IS RESTING IN BED WITH EYES CLOSED ON LEFT SIDE. VSS. BED IS LOW,SIDE RAISLX2,CALL LIGHT WIHTIN REACH. WILL CONITNUE TO MONITOR
--- NOTE | 2019-08-17 02:33 | NUR ---
PT IS RESTING IN BED WITH EYES CLOSED ON RIGHT SIDE. VSS. BED IS LOW,SIDE RAISLX2,CALL LIGHT WITHIN REACH. WILL CONITNUE TO MONITOR
--- NOTE | 2019-08-17 03:04 | NUR ---
PT JUST RECIVED RESPIRATORY TX AND VOCALIZED THAT "I HAVE A COVARRUBIAS". SHE IS A&OX4. SHE HAS MEDICATION ORDERED PRN FOR COVARRUBIAS. WILL ADMISNITER AND DOC IN MAR. ALSO PERFORMING RE-ASSESSMENT AT THIS TIME AND WILL DOC IN FLOW SHEET. BED IS LOW,SIDE RAILSX2,CALL LIGHT WITHIN REACH. WILL CONTINUE TO MONITOR
--- NOTE | 2019-08-17 04:58 | NUR ---
PT IS OFF WITH X-RAY AT THIS TIME
--- NOTE | 2019-08-17 05:06 | NUR ---
PT IS BACK FROM X-RAY AT THIS TIME IN STABLE CONDITON. BACK TO BED SAFELY. VSS.
--- NOTE | 2019-08-17 06:35 | NUR ---
PT IS RESTING IN BED ON RIGHT SIDE. VSS. NO NEEDS OR CNCERNS VOICED. BED IS LOW,SIDE RAISLX2,CALL LIGHT WITHIN REACH.
--- NOTE | 2019-08-17 11:49 | NUR ---
SITTING ON SIDE OF BED EATING LUNCH. STILL HAS HEADACHE SOME BETTER.
--- NOTE | 2019-08-17 12:11 | NUR ---
DR. BOYLE HERE. STATES NO AIR LEAK NOTED, WILL PLUG OFF HEIMLICH TOMORROW MAYBE HOME ON MONDAY
--- NOTE | 2019-08-17 14:29 | NUR ---
NAPPING ON SIDE. RESP DEEP AND REGULAR NO DISTRESS. HEIMLICH INTACT. NO AIRLEAK NOTED. MONITOR SR. LEFT SUBCLAVIAN DRESSING DRY AND INTACT. RIGHT NECK INCISION INTACT. NO DRAINAGE
--- NOTE | 2019-08-17 19:00 | NUR ---
PT ASSESSMENT COMPLETED AT THIS TIME, NO CHANGES NOTED FROM NURSE REPORT, PT IS RESTING IN BED WITH EYES CLOSED AND AWAKES TO NAME, PT IS THEN AAOX4, PT C/O PAIN TO LEFT CHEST WHEN HEIMLICH VALVE IS INPLACE, RESP ARE EVEN AND NON LABORED, PT WAS OFFERED PAIN MEDICATION BUT STATES THAT SHE JUST TOOK SOME FOR HER HEACHACHE AND DID NOT WANT TO TAKE ANYTHING ELSE AT THIS TIME. VSS, WILL MONITOR FOR CHANGES
--- NOTE | 2019-08-17 21:29 | NUR ---
PT WAS GIVEN 2100 MEDS AND C/O LEFT CHEST/LUNG BURNIG AND PAIN, PT GIVEN PRN PAIN MED AT THIS TIME, LAVON MONITOR FOR EFFECT
--- NOTE | 2019-08-17 23:00 | NUR ---
PT REASSESSMENT COMPLETED AT THIS TIME, NO CHANGES NOTED FROM PREVIOUS EXAM, VSS, WILL MONITOR FOR CHANGES
[2019-08-18] VITALS (27 sets, daily range): BP systolic 89–163; BP diastolic 49–86
--- NOTE | 2019-08-18 01:00 | NUR ---
PT RESTING WITH EYES CLOSED RESP EVEN AND NON LABORED, VSS WILL MONITOR FOR CHANGES
--- NOTE | 2019-08-18 03:00 | NUR ---
PT REASSESSMENT COMPLETED AT THIS TIME, NO CHANGES NOTED FROM PREVIOUS EXAM, VSS WILL MONITOR FOR CHANGES
--- NOTE | 2019-08-18 03:31 | NUR ---
PT'S SPO2 DRECREASED TO 88%, PT WAS PLACED ON O2 VIA N/C AND SPO2 INCREASED TO 95%
--- NOTE | 2019-08-18 05:11 | NUR ---
PT SITTING UP IN BED REPOSITIONING, PT DENIES COMPLAINTS BUT WANTING SOME COFFEE, PT WAS GIVEN SOME COFFEE, NO DISTRESS NOTED
--- NOTE | 2019-08-18 05:36 | NUR ---
CALLED DR BOYLE TO UPDATE ON PT'S ELEVATED B/P, NO ANSWER AT THIS TIME, WILL TRY AGAIN
--- NOTE | 2019-08-18 06:02 | NUR ---
CALLED DR BOYLE ABOUT B/P AT THIS TIME NEW ORDERS NOTED
--- NOTE | 2019-08-18 07:00 | NUR ---
UP IN CHAIR AT BEDSIDE. STATES HER HEAD IS REALLY HURTING HER. SKIN WARM AND DRY. HEIMLICH VALVE INTACT. DENIES SHORTNESS OF BREATH. MONITOR SR. BLOOD PRESSURE DOWN.
--- NOTE | 2019-08-18 08:00 | NUR ---
C/O NAUSEA. ZOFRAN GIVEN. NORCO GIVEN FOR HEADACHE. SALINE CRACKERS PROVIDED
--- NOTE | 2019-08-18 09:00 | NUR ---
RESTING IN BED. STATES HEAD IS FEELING BETTER. PO MEDS TAKEN.
--- NOTE | 2019-08-18 11:00 | NUR ---
DR. BOYLE HERE. PLUG APPLIED TO [facility]. PATIENT TOLERATED WELL. UP IN CHAIR AT BEDSIDE.
--- NOTE | 2019-08-18 11:30 | NUR ---
AMBULATED IN GONZALEZ WITH NURSE, TOLERATED WELL
--- NOTE | 2019-08-18 12:00 | NUR ---
LUNCH TRAY SERVED ATE 100%. GOOD APPETITE. HEADACHE COMES AND GOES.
--- NOTE | 2019-08-18 14:00 | NUR ---
AMBULATING IN GONZALEZ INDEPENDENTLY. STILL HAS A MIGRAIN HEADACHE. DENIES SHORTNESS OF BREATH. UP IN CHAIR AT BEDSIDE AFTER WALKING.
--- NOTE | 2019-08-18 16:16 | NUR ---
NAPPING IN BED. HEAD BETTER RIGHT NOW. DENIES ANY SHORTNESS OF BREATH.
--- NOTE | 2019-08-18 16:45 | NUR ---
UP IN CHAIR AT BEDSIDE. DINNER TRAY SERVED.
--- NOTE | 2019-08-18 17:55 | NUR ---
HEADACHE CONTINUES ZOFRAN GIVEN. IN BED WITH CURTAINS PULLED.
--- NOTE | 2019-08-18 18:22 | NUR ---
HEADACHE GETTING EASIER.
--- NOTE | 2019-08-18 19:00 | NUR ---
PT ASSESSMENT COMPLETED AT THIS TIME, NO CHANGES NOTED FROM NURSE REPORT, PT RESTING IN BED, PT DENIES ANY PROBLEMS, PT ADVISED THAT HER HEADACHE WAS MUCH BETTER AND NOT HURTING AT THIS TIME, NO DISTRESS NOTED, VSS WILL MONITOR FOR CHANGES
--- NOTE | 2019-08-18 21:00 | NUR ---
PT RESTING IN BED, NO DISTRESS NOTED, PT DENIES COMPLAINTS, VSS, WILL MONITOR FOR CHANGES
--- NOTE | 2019-08-18 23:00 | NUR ---
PT REASSESSMENT COMPLETED AT THIS TIME, NO CHANGES NOTED FROM PREVIOUS EXAM, VSS, WILL MONITOR FOR CHANGES
[2019-08-19] VITALS (13 sets, daily range): BP systolic 100–148; BP diastolic 55–80
--- NOTE | 2019-08-19 01:00 | NUR ---
PT RESTING WITH EYES CLOSED, RESP EVEN AND NON LABORED, VSS, WILL MONITOR FOR CHANGES
--- NOTE | 2019-08-19 03:00 | NUR ---
PT REASSESSMENT COMPLETED AT THIS TIME, NO CHANGES NOTED FROM PREVIOUS EXAM, VSS, WILL MONITOR FOR CHANGES
--- NOTE | 2019-08-19 04:56 | NUR ---
PT BACK FROM XRAY AND IS C/O COVARRUBIAS, PT GIVEN PRN PAIN MEDS AT THIS TIME
--- NOTE | 2019-08-19 05:37 | NUR ---
PT C/O FEELING NAUSEATED FROM HER COVARRUBIAS, PRN ZOFRAN GIVEN AT THIS TIME
[2019-08-19 05:53] LABS: BASOPHILS 0.6 % (0-2); EOSINOPHILS 6.7 % (0-7); HEMATOCRIT 37.5 % (36.0-48.0); HEMOGLOBIN 11.5 g/dL (12-16); IMMATURE GRANULOCYTES 0.2 % (0-5); LYMPHOCYTES 18.1 % (15-50); MCH 28.8 pg (26.0-34.0); MCHC 30.7 g/dL (31.0-37.0); MCV 93.8 fL (80.0-100.0); MEAN PLATELET VOLUME 11.4 fL (7.4-10.4); MONOCYTES 8.6 % (2-11); NEUTROPHILS 65.8 % (40-80); PLATELET COUNT 222 10x3/uL (130-400); RDW 14.6 % (11.5-14.5); WBC 8.1 10x3/uL (4.8-10.8)
[2019-08-19 06:14] LABS: CALC OSMOLALITY 283 mosm/kg (275-300); CALCIUM 8.5 mg/dL (8.5-10.1); CARBON DIOXIDE 27.9 mmol/L (21.0-32.0); CHLORIDE - SERUM 108 mmol/L (98-107); CREATININE - SERUM 0.6 mg/dL (0.6-1.3); GLUCOSE 104 mg/dL (74-106); POTASSIUM - SERUM 3.8 mmol/L (3.5-5.1); SODIUM 143 mmol/L (136-145); UREA NITROGEN 9 mg/dL (7-18); eGFR NON AFRICAN AMERICAN > 90 mL/min (90-120)
--- NOTE | 2019-08-19 09:31 | NUR ---
0700PT RECIEVED ALERT AN DORIENTED VSS, COMPLAINTS OF MIGRAINE, SEE SHIFT ASSESSMENT FOR DETAILS 0830 ASSISTED UP TO CHAIR FOR BREAKFAST
--- NOTE | 2019-08-19 09:32 | NUR ---
HOLDING LOVENOX AT THIS TIME PER DR FRAGOSO NURSE COURTNI AWAITING DR BOYLE TO DC ALETHACAERY VALVE
--- NOTE | 2019-08-19 09:51 | NUR ---
Nutiriton Follow-up: POD 5 carotid endarterectomy. 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 Also c/o migraine contributing to nausea. Refuses nutrition supplements. Diet: Regular Wt: 132.2# (08/18); 128# (08/15) Last BM: 08/17 Labs reviewed Meds noted: Protonix, Zofran -Encourage PO intake and honor food preferences. -Monitor wt. -RD following.
--- NOTE | 2019-08-19 10:17 | NUR ---
DR BOYLE IN ROOM AND DCD HEIMLICH VALVE. CVL DCD PER PROTOCOL. SPOKE WITH DAUGHTER AWARE OF DC
--- NOTE | 2019-08-19 13:23 | NUR ---
1220 REVIEWED DC INSTRUCTIONS WITH PT AND AGAIN WITH DAUGHTER AT VEHICLE. ASSISTED TO CAR AND BOTH DENY QUESTIONS, WILL CONTINUE TO MONITOR
--- NOTE | 2019-08-20 09:54 | MORECARE ---
CASE MANAGEMENT DISCHARGE SUMMARY PATIENT: RICARDO SANCHEZ UNIT: [id number] ADM DATE: 08/14/19 AGE: 74 : 44 SEX: F [facility] AUTHOR: JIM,DOC PHYSICIAN: REFERRING PHYSICIAN: MARGIE BOYLE MD DATE OF SERVICE: 08/20/19 Discharge Plan Patient Name: RICARDO SANCHEZ Facility: [facility]:[place] : 1945 Planned Disposition: Home Anticipated Discharge Date: Discharge Date: 08/19/2019 Expected LOS: Initial Reviewer: [email or web address] Initial Review Date: 08/13/2019 Generated: 08/20/19 10:54 am Comments DCP- Discharge Planning Updated by [email or web address]: Suzanne Sparks on 08/16/19 5:[address] Patient Name: RICARDO SANCHEZ Admission Status: Elective Accout number: [id number] Admission Date: 08-14-2019 : 1945 Admission Diagnosis: Attending: MARGIE BOYLE Current LOS: 2 Anticipated DC Date: Planned Disposition: Home Primary Insurance: MEDICARE A & B Discharge Planning Comments: CM met with patient to complete initial dc planning assessment. CM educated patient on the CM role and verbal consent given by patient to complete assessment. Patient lives at home with her daughter where she is independent with her care. At discharge patient plans to return home and feels this is a safe discharge. CM discussed availability of home health, rehab services, and medical equipment. Her daughter will be her dedicated truck driver home. Patient has home o2 concentrator ( [employer] ) Patient denied known discharge needs at this time. CM will continue to follow and will assist as needed with dc plans/needs. Streets And Buildings Decorator: Suzanne Sparks DCPIA - Discharge Planning Initial Assessment Updated by [email or web address]: Suzanne Sparks on 08/16/19 6:12 pm * Is the patient Alert and Oriented? Yes * How many steps to enter\exit or inside your home? * PCP [place] * Pharmacy [facility] * Preadmission Environment Home with Family * ADLs Independent * Other Equipment WALKER, ELEVATED TOILET, WALK IN SHOWER, CANE, CRUTCHES, 02 @ HS / [employer] * List name and contact numbers for known caregivers / representatives who currently or will assist patient after discharge: ORALIA HELM - DAUGHTER - [phone] * Verbal permission to speak to the caregivers and representatives has been obtained from the patient. Yes * Community resources currently utilized None * Additional services required to return to the preadmission environment? No * Can the patient safely return to the preadmission environment? Yes * Has this patient been hospitalized within the prior 30 days at any hospital? No Coverage Notice Reviewer: [email or web address] Sania Sparks Notice Issued Date-Time: 08/16/2019 15:00 Notice Type: IM Discharge Notice Notice Delivered To: Patient Relationship to Patient: Self Field Operator Name: Delivery Method: - Tierra Days: Prior Verbal Notification: Recipient Understood Notice: Recipient Signature: Med Rec Note Co-signed by Attending: Coverage Notice Comment: Last DP export: 08/16/19 5:18 pm Patient Name: RICARDO SANCHEZ Page [phone] at 0954 All edits/amendments must be made on the electronic document DICTATION DATE: 08/20/19953 JIG BORER: KAMRON 08/20/19 0954 RPT#: [id number] DC DATE:08/19/19 STATUS: DIS IN [facility] [address] [place] [address] END OF REPORT
--- NOTE | 2019-08-20 15:53 | OP ---
PATIENT NAME: RICARDO SANCHEZ MEDICAL RECORD: [id number] :43 LOCATION:[id number] ADMISSION DATE:08/14/19 SURGEON: ABDELRAHMAN BOYLE MD DATE OF OPERATION: 08/14/2019 SURGEON: Abdelrahman Boyle MD ANESTHESIA: General endotracheal, Dr. Julian. OPERATION PERFORMED: Right carotid endarterectomy with patch angioplasty. PREOPERATIVE DIAGNOSIS: Severe right internal carotid artery stenosis. POSTOPERATIVE DIAGNOSIS: Severe right internal carotid artery stenosis. INDICATION FOR OPERATION: Severe right internal carotid artery stenosis. FINDINGS OF OPERATION: Severe right internal carotid artery stenosis. There were no EEG changes with clamping or unclamping of the carotid artery. ESTIMATED BLOOD LOSS: Less than 100 mL. DESCRIPTION OF PROCEDURE: After informed consent, adequate preoperative medication evaluation, the patient was brought to the operating room, placed on table in supine position after induction of general endotracheal anesthesia, and application of appropriate monitoring devices, right neck and chest prepped and draped in a sterile field utilizing Betadine scrub, alcohol and Betadine solution. Betadine-impregnated drape was also used. An oblique incision was made in the skin crease. Dissection carried down the fascia. Hemostasis maintained with electrocautery. Facial vein was identified and divided. Utilizing sharp dissection, the common carotid, internal and external carotid arteries were dissected free from surrounding structures, protecting the neurological structures. The patient was given a calculated dose of heparin. After 3 minutes, clamps were applied. After 2 minutes, no EEG change. The arteriotomy was made and extended with Valentin scissors. Artery underwent endarterectomy sharply. Artery underwent extensive debridement and irrigation. Utilizing a CorMatrix vascular patch and running 7-0 Prolene suture, the arteriotomy was closed with a patch angioplasty technique. All maneuvers to remove trapped air were performed. The clamps removed sequentially. There were no EEG changes. The patient was given a calculated dose of protamine to reverse the heparin. Hemostasis was achieved. A #7 Abelino-Dexetr drain was left in the depths of the wound and brought through the base of the neck. Neck was again irrigated. Instrument count and sponge count were correct times 2. Neck was closed in layers utilizing 3-0 Vicryl on the platysma, 5-0 subcuticular Monocryl on the skin. Sterile dressings were applied. The patient tolerated the procedure well and transferred to cardiovascular recovery in satisfactory condition. TRANSINT:[id number] Voice Confirmation ID: [id number] DOCUMENT ID: [id number] OPERATIVE REPORT [id number] RICARDO SANCHEZ EDWARD MD at 1553 CC: [id number] DICTATION DATE: 08/14/19 1200 MARINE FIRER: 08/15/19 0530 DIS IN 08/19/19 [place] [id number]
== END 2019-08-19 12:20 | disposition home or self-care (01) | DRG 37 ==
LOC: D.SDCHOLD 09:45 → D.CVICU 08-14 06:06 → D.SDCHOLD 08-14 09:00 → D.CVICU 08-14 11:24
PROVIDERS: Internal Medicine Pulmonary Disease; ADMIT Internal Medicine Cardiovascular Disease; ATTEND Internal Medicine Cardiovascular Disease
PROC: 0W9B30Z Drainage of Left Pleural Cavity with Drainage Device, Percutaneous Approach (ICD-10-PCS; 2019-08-14)
PROC: 03CK0ZZ Extirpation of Matter from Right Internal Carotid Artery, Open Approach (ICD-10-PCS; principal; 2019-08-14 09:00)
DX: I65.21 Occlusion and stenosis of right carotid artery (principal); J96.01 Acute respiratory failure with hypoxia; J95.811 Postprocedural pneumothorax; J98.11 Atelectasis; I10 Essential (primary) hypertension; E11.9 Type 2 diabetes mellitus without complications; J44.9 Chronic obstructive pulmonary disease, unspecified; G47.33 Obstructive sleep apnea (adult) (pediatric); I49.1 Atrial premature depolarization; J30.9 Allergic rhinitis, unspecified; G43.909 Migraine, unspecified, not intractable, without status migrainosus; Z87.01 Personal history of pneumonia (recurrent)

== ENCOUNTER → 2020-06-11 14:15 | Outpatient (CLI) | payer MEDICARE, BC | END | disposition home or self-care (01) | LOC: D.LAB 14:15 | PROVIDERS: ATTEND Internal Medicine Pulmonary Disease | DX: Z20.822 Contact with and (suspected) exposure to COVID-19 (principal) ==

== ENCOUNTER → 2020-06-17 15:45 | Outpatient (CLI) | payer MEDICARE, BC | END | disposition home or self-care (01) | LOC: D.RT 15:45 | PROVIDERS: ATTEND Internal Medicine Pulmonary Disease | DX: J44.9 Chronic obstructive pulmonary disease, unspecified (principal) ==

== ENCOUNTER 2020-07-29 15:06 | Observation (INO) | payer MEDICARE, BC ==
[~2020-07-29] VITALS: Ht 170.2 cm; Wt 59.1 kg
[2020-07-29 16:24] LABS: BASOPHILS 1.7 % (0-2); EOSINOPHILS 4.4 % (0-7); HEMATOCRIT 35.2 % (36.0-48.0); HEMOGLOBIN 10.6 g/dL (12-16); IMMATURE GRANULOCYTES 0.3 % (0-5); LYMPHOCYTES 27.4 % (15-50); MCH 25.6 pg (26.0-34.0); MCHC 30.1 g/dL (31.0-37.0); MEAN PLATELET VOLUME 11.3 fL (7.4-10.4); MONOCYTES 8.2 % (2-11); NEUTROPHIL ABS# 3.82 10x3/uL (1.56-6.13); PLATELET COUNT 225 10x3/uL (130-400); RBC 4.14 10x6/uL (4.00-5.40); RDW 16.1 % (11.5-14.5); WBC 6.6 10x3/uL (4.8-10.8)
[2020-07-29 16:34] LABS: CALC OSMOLALITY 287 mosm/kg (275-300); CALCIUM 8.8 mg/dL (8.5-10.1); CARBON DIOXIDE 26.9 mmol/L (21.0-32.0); CHLORIDE - SERUM 108 mmol/L (98-107); CREATININE - SERUM 0.7 mg/dL (0.6-1.3); GLUCOSE 109 mg/dL (74-106); POTASSIUM - SERUM 4.5 mmol/L (3.5-5.1); SODIUM 144 mmol/L (136-145); UREA NITROGEN 12 mg/dL (7-18); eGFR NON AFRICAN AMERICAN 86 mL/min (90-120)
[2020-07-29 16:36] LABS: APTT 24.4 SECONDS (22.8-39.4); INR 1.05 (0.85-1.17); PROTIME 12.7 SECONDS (11.6-15.0)
[2020-07-29 16:37] LABS: D-DIMER-QUANTITATIVE 0.67 ug/mLFEU (0.20-0.54)
[2020-07-29 16:41] LABS: ALBUMIN 3.5 g/dL (3.4-5.0); ALKALINE PHOSPHATASE 92 U/L (30-120); ALT (SGPT) 16 U/L (10-68); BILIRUBIN - TOTAL 0.22 mg/dL (0.2-1.3); PROTEIN - SERUM 6.5 g/dL (6.4-8.2)
--- NOTE | 2020-07-29 18:45 | NUR ---
ARRIVES TO UNIT PER W/C FROM ER, ALERT AND O, NO DISTRESS NOTED, IV INFUSING, CONT TO MONITOR PAIN AND PASS REPORT TO SALES AND CUSTOMER RELATIONS REP
--- NOTE | 2020-07-29 19:45 | NUR ---
RECEIVED BEDSIDE REPORT. PT LAYING IN BED A&O X4. PIV TO RIGHT FOREARM PATENT AND INFUSING, NO REDNESS OR SWELLING. BRUISE AND SWELLING TO LLE. PT MEETS CRITERIA FOR FALL PRECAUTIONS, DUE TO AGE AND SWELLING OF LLE, PT REFUSES BED ALARM AND HAS SIGNED WAIVER, SEE CHART. EDUCATED PT ON CL AND NEEDS, VERBALIZED UNDERSTANDING. BED LOW, CL IN REACH.
[2020-07-29 20:00] VITALS: BP 157/70
[2020-07-29 22:29] VITALS: BP 157/70; Ht 170.2 cm; Wt 59.1 kg
[2020-07-30 04:00] VITALS: BP 168/75
[2020-07-30 06:20] LABS: APTT 27.3 SECONDS (22.8-39.4); INR 1.09 (0.85-1.17)
[2020-07-30 06:24] LABS: EOSINOPHILS 7.2 % (0-7); HEMOGLOBIN 10.5 g/dL (12-16); IMMATURE GRANULOCYTES 0.2 % (0-5); LYMPHOCYTE ABS# 1.71 10x3/uL (1.18-3.74); LYMPHOCYTES 29.2 % (15-50); MCH 25.4 pg (26.0-34.0); MCV 84.7 fL (80.0-100.0); MEAN PLATELET VOLUME 12.2 fL (7.4-10.4); MONOCYTES 10.1 % (2-11); NEUTROPHIL ABS# 3.06 10x3/uL (1.56-6.13); NEUTROPHILS 52.3 % (40-80); PLATELET COUNT 247 10x3/uL (130-400); RBC 4.13 10x6/uL (4.00-5.40); RDW 16.3 % (11.5-14.5); WBC 5.9 10x3/uL (4.8-10.8)
[2020-07-30 06:44] LABS: ALKALINE PHOSPHATASE 85 U/L (30-120); ALT (SGPT) 13 U/L (10-68); BILIRUBIN - TOTAL 0.32 mg/dL (0.2-1.3); CALC OSMOLALITY 279 mosm/kg (275-300); CALCIUM 8.8 mg/dL (8.5-10.1); CARBON DIOXIDE 25.2 mmol/L (21.0-32.0); CHLORIDE - SERUM 108 mmol/L (98-107); CREATININE - SERUM 0.6 mg/dL (0.6-1.3); GLUCOSE 88 mg/dL (74-106); MAGNESIUM - SERUM 2.1 mg/dL (1.8-2.4); POTASSIUM - SERUM 4.4 mmol/L (3.5-5.1); PROTEIN - SERUM 5.9 g/dL (6.4-8.2); SODIUM 141 mmol/L (136-145); UREA NITROGEN 12 mg/dL (7-18); eGFR NON AFRICAN AMERICAN > 90 mL/min (90-120)
[2020-07-30 09:11] VITALS: BP 132/77
[2020-07-30 12:58] VITALS: BP 177/71
[2020-07-30 16:56] VITALS: BP 117/57
[2020-07-30] MEDS ORDERED: NICODERM CQ1 EAC3 TRANSDERM (17:03)
[2020-07-30] MEDS ORDERED: ELIQUIS5 MG PO (17:04)
--- NOTE | 2020-07-30 19:45 | NUR ---
RECEIVED BEDSIDE REPORT. PT LAYING IN A&O X4. PIV TO RIGHT FOREARM, PATENT AND INFUSING, NO REDNESS OR SWELLING. O2 SAT 96% ON 2L VIA NC. SWELLING TO LOWER EXTREM, BRUISES NOTED. BED LOW, CL IN REACH.
[2020-07-30 21:36] VITALS: BP 95/54
[2020-07-31 02:21] LABS: BILIRUBIN NEGATIVE (NEGATIVE); KETONE NEGATIVE (NEGATIVE); NITRITE NEGATIVE (NEGATIVE); UROBILINOGEN NORMAL mg/dL (< 2)
[2020-07-31 04:00] VITALS: BP 112/58
[2020-07-31 06:59] LABS: BASOPHILS 0 % (0-2); EOSINOPHILS 0 % (0-7); HEMATOCRIT 35.3 % (36.0-48.0); HEMOGLOBIN 10.5 g/dL (12-16); LYMPHOCYTE ABS# 0.51 10x3/uL (1.18-3.74); LYMPHOCYTES 12.5 % (15-50); MCH 25.3 pg (26.0-34.0); MCHC 29.7 g/dL (31.0-37.0); MCV 85.1 fL (80.0-100.0); MONOCYTES 1.2 % (2-11); NEUTROPHIL ABS# 3.53 10x3/uL (1.56-6.13); NEUTROPHILS 86.3 % (40-80); PLATELET COUNT 240 10x3/uL (130-400); RBC 4.15 10x6/uL (4.00-5.40); RDW 16.3 % (11.5-14.5)
[2020-07-31 07:02] LABS: CALC OSMOLALITY 288 mosm/kg (275-300); CALCIUM 9.1 mg/dL (8.5-10.1); CARBON DIOXIDE 24.1 mmol/L (21.0-32.0); CHLORIDE - SERUM 110 mmol/L (98-107); CREATININE - SERUM 0.7 mg/dL (0.6-1.3); PHOSPHOROUS 3.5 mg/dL (2.5-4.9); POTASSIUM - SERUM 4.5 mmol/L (3.5-5.1); SODIUM 144 mmol/L (136-145); UREA NITROGEN 12 mg/dL (7-18); eGFR NON AFRICAN AMERICAN 86 mL/min (90-120)
[2020-07-31 07:04] LABS: GLUCOSE 140 mg/dL (74-106)
[2020-07-31 07:06] LABS: WBC 4.1 10x3/uL (4.8-10.8)
[2020-07-31 08:38] VITALS: BP 143/90
--- NOTE | 2020-07-31 12:44 | NUR ---
IV DISCONTINUED AND VERBALIZED UNDERSTANDING OF DISCHARGE INSTRUCTIONS. STABLE AT TIME OF DISCHARGE
== END 2020-07-31 12:45 | disposition home or self-care (01) ==
LOC: D.ER 15:06 → OBSVTIME 17:34 → D.MS 17:34
PROVIDERS: Family Medicine; ADMIT Emergency Medicine; ATTEND Emergency Medicine
DX: I82.432 Acute embolism and thrombosis of left popliteal vein (principal); D64.9 Anemia, unspecified; I10 Essential (primary) hypertension; Z72.0 Tobacco use; K21.9 Gastro-esophageal reflux disease without esophagitis; G43.909 Migraine, unspecified, not intractable, without status migrainosus; G89.29 Other chronic pain; J44.9 Chronic obstructive pulmonary disease, unspecified; I65.23 Occlusion and stenosis of bilateral carotid arteries; Z79.01 Long term (current) use of anticoagulants

== ENCOUNTER 2020-08-10 07:45 | Day surgery (SDC) | payer MEDICARE, BC ==
[~2020-08-10] VITALS: Ht 170.2 cm; Wt 56.8 kg
--- NOTE | ~2020-08-10 | HEMODYNAMI ---
PATIENT:RICARDO SANCHEZ MEDICAL RECORD: [id number] : 43 LOCATION:[facility] ADMISSION DATE: 08/10/20 Generatedon:112:25 Patient name: RICARDO SANCHEZ Patient #: [id number] SSN: D OB: 1945 Date of study: 08/10/2020 Page: Of Hemodynamic Procedure Report Patient Data Patient Demographics Procedure consent was obtained First Name: RICARDO Gender: Female Last Name: LAURA : 1945 Middle Initial: MORALES Age: 75 year(s) Patient #: [id number] Race: Unknown Additional ID: [id number] Contact details [address]: [address] [place] [address] circle State: [place] City: [place] Zip code: [address] Past Medical History Allergies Allergen Reaction Date Comments Reported IV contrast dye 12/22/2017 Morphine 12/22/2017 Other allergy 08/10/2020 iodine, morphine Admission Admission Data Admission Date: 08/10/2020 Admission Time: 7:45 Procedure Procedure Types Cath Procedure Peripheral Cath Diagnostic Procedure Abd/Extremity Extremities Bilat Lower Extremity Procedure Description Procedure Date Procedure Date: 08/10/2020 Procedure Start Time: 10:20 Procedure End Time: 12:24 Procedure Staff Name Function Dillan Diaz MD Performing Physician MARGARETH GOODWIN RT Monitor Chester Guerrero RT Scrub Desiree Moss RN Nurse Procedure Data Cath Procedure Fluoroscopy Diagnostic fluoroscopy Total fluoroscopy Time: time: 32.4 min 32.4 min Diagnostic fluoroscopy Total fluoroscopy dose: 244 dose: 244 mGy mGy Contrast Material Contrast Material Type Amount (ml) Isovue 300 125 Entry Location Entry Primary Successful Side Size Upsize 1 Upsize Entry Closure Urbano ccessful Closure Location (Fr) (Fr) 2 (Fr) Remarks Device Remarks Femoral Right 5 Fr 6 Fr 6 Fr Mynx artery Mid-Length Short Jonatan 6Fr/7Fr Diagnostic catheters Device Type Used For End Catheter Placement DIAGNOSTIC IMT 5Fr Catheter ([id number]) Procedure Medications Medication Administration Route Dosage Heparin Bolus I.V. 3000 units Lidocaine 1% added to field 20 Heparin Flush Bag added to field 2 bags (1000units/500ml NS) Versed I.V. 1 mg Fentanyl I.V. 50 mcg Versed I.V. 0.5 mg Fentanyl I.V. 25 mcg Nitroglycerin IC/IA I.A. 300 mcg Versed I.V. 0.5 mg Fentanyl I.V. 25 mcg Heparin Bolus I.V. 1500 units Fentanyl I.V. 50 mcg Versed I.V. 1 mg Fentanyl I.V. 50 mcg Versed I.V. 1 mg Integrilin (Bolus 5 ml 2mg/ml) Fentanyl I.V. 50 mcg Versed I.V. 1 mg Hemodynamics Rest Heart Rate: 90 (bpm) Snapshots Pre Cath Intra NCS Post Cath Vital Signs Time Heart Resp SPO2 etCO2 NIBP (mmHg) Rhythm Pain Sedation Rate (ipm) (%) (mmHg) Status Level (bpm) 10:05:39 92 8 14.2 182/91(147) NSR 0 (11) 10(A) , No pain 10:09:57 89 13 24 163/95(133) NSR 0 (11) 10(A) , No pain 10:14:07 87 19 21.7 152/95(137) NSR 0 (11) 10(A) , No pain 10:18:12 84 8 10.5 137/99(127) NSR 0 (11) 10(A) , No pain 10:22:18 81 14 0 139/78(121) NSR 0 (11) 10(A) , No pain 10:26:28 81 14 95 0 130/76(110) NSR 0 (11) 10(A) , No pain 10:30:34 81 16 95 0 117/74(99) NSR 0 (11) 10(A) , No pain 10:34:36 77 15 96 23.2 110/71(97) NSR 0 (11) 10(A) , No pain 10:39:27 79 11 94 0 133/79(111) NSR 0 (11) 10(A) , No pain 10:43:32 78 18 95 0 134/79(114) NSR 0 (11) 10(A) , No pain 10:47:38 77 18 96 24.7 136/80(115) NSR 0 (11) 10(A) , No pain 10:51:44 78 17 97 24 129/80(109) NSR 0 (11) 10(A) , No pain 10:55:50 76 20 26.2 140/72(120) NSR 0 (11) 10(A) , No pain 10:59:57 83 15 96 22.5 113/77(101) NSR 0 (11) 10(A) , No pain 11:03:57 80 19 19.5 129/76(101) NSR 0 (11) 10(A) , No pain 11:08:03 81 19 24 114/74(92) NSR 0 (11) 10(A) , No pain 11:12:03 81 19 23.2 122/74(100) NSR 0 (11) 10(A) , No pain 11:16:06 81 19 26.2 115/77(97) NSR 0 (11) 10(A) , No pain 11:19:58 84 15 95 8.2 119/97(116) NSR 0 (11) 10(A) , No pain 11:24:57 82 16 96 12 Measuring NSR 0 (11) 10(A) , No pain 11:25:01 83 16 95 12 142/94(115) NSR 0 (11) 10(A) , No pain 11:29:58 84 14 95 30.7 162/92(120) NSR 0 (11) 10(A) , No pain 11:34:14 85 13 98 24.7 142/83(115) NSR 0 (11) 10(A) , No pain 11:38:22 86 15 96 26.2 121/83(105) NSR 0 (11) 10(A) , No pain 11:43:19 85 12 96 27 143/81(128) NSR 0 (11) 10(A) , No pain 11:48:18 85 22 98 12 Measuring NSR 0 (11) 10(A) , No pain 11:48:24 87 22 98 9.7 157/90(129) NSR 0 (11) 10(A) , No pain 11:52:36 86 15 98 24 154/86(131) NSR 0 (11) 10(A) , No pain 11:56:46 84 17 98 27 158/87(124) NSR 0 (11) 10(A) , No pain 12:00:56 82 11 96 27 159/90(128) NSR 0 (11) 10(A) , No pain 12:05:06 85 17 97 26.2 168/92(137) NSR 0 (11) 10(A) , No pain 12:09:17 91 13 96 0 176/106(143) NSR 0 (11) 10(A) , No pain 12:13:38 85 12 95 27 141/85(118) NSR 0 (11) 10(A) , No pain 12:17:45 86 15 96 27.7 135/77(122) NSR 0 (11) 10(A) , No pain 12:21:47 85 11 97 20.2 148/92(129) NSR 0 (11) 10(A) , No pain Medications Time Medication Route Dose Verified Delivered Reason Notes Effec tiveness by by 10:20:07 Versed I.V. 1 mg Dillan Ramírez for Emily Ajay sedation MD PANCHAL 10:20:37 Fentanyl I.V. 50 Dillan Ramírez for mcg Emily Ajay sedation MD PANCHAL 10:24:23 Heparin Bolus I.V. 3000 Dillan Ramírez used for units Emilyroyce Moss procedure MD PANCHAL 10:24:51 Lidocaine 1% added 20ml Dillan Ramírez used for to vial Emily Ajay procedure field MD PANCHAL 10:25:04 Heparin Flush added 2 Dillan Ramírez used for Bag to bags Emily Moss procedure (1000units/500ml field CASTILLO RN NS) 10:26:04 Versed I.V. 0.5 Dillan Ramírez for mg Emily Ajay sedation MD PANCHAL 10:26:18 Fentanyl I.V. 25 Dillan Ramírez for mcg Emily Ajay sedation MD PANCHAL 10:58:31 Nitroglycerin I.A. 300 Dillan Grimaldo used for IC/IA mcg Emily Emily procedure MD CASTILLO 11:01:13 Versed I.V. 0.5 Dillan Grimaldo for mg Emilydoni Diaz sedation MD CASTILLO 11:01:21 Fentanyl I.V. 25 Dillan Grimaldo for mcg Emily Emily sedation MD CASTILLO 11:14:08 Heparin Bolus I.V. 1500 Dillan Ramírez used for units Emily Moss procedure MD PANCHAL 11:22:50 Fentanyl I.V. 50 Dillan Ramírez for mcg Emily Moss sedation MD PANCHAL 11:23:01 Versed I.V. 1 mg Dillan Ramírez for Emily Moss sedation MD PANCHAL 11:40:09 Fentanyl I.V. 50 Dillan Raímrez for mcg Emily Moss sedation MD PANCHAL 11:48:34 Versed I.V. 1 mg Dillan Ramírez for Emily Moss sedation MD PANCHAL 12:04:31 Integrilin IA 5 ml Dillan Grimaldo used for (Bolus 2mg/ml) Emily Diaz procedure MD CASTILLO 12:09:03 Fentanyl I.V. 50 Dillan Ramírez for mcg Emily Moss sedation MD PANCHAL 12:09:15 Versed I.V. 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 9:47:50 Sterile Angiographic Pack opened to sterile field. 9:47:51 Tegaderm 4 x 4 (1626W) opened to sterile field. 9:48:39 A DIAGNOSTIC IMT 5Fr Catheter ([id number]) was opened to sterile field. 9:48:40 SHEATH 5FR [place] ([id number]) opened to sterile field. 9:48:40 SAGE 260 wire ([id number]) opened to sterile field. 9:48:41 BENTSON 145cm wire ([id number]) opened to sterile field. 9:48:41 ROADRUNNER .035 260 glide wire ([id number]) opened to sterile field. 9:49:07 MICROPUNCTURE 4FR [place] ([id number]) opened to sterile field. 9:57:06 CXI SUPPORT .035 135 CM STR catheter ([id number]) opened to sterile field. 10:04:20 Desiree Moss RN sent for patient. Start room use. 10:04:22 Time tracking: Regular hours (M-F 7:00 - 5:00) 10:04:25 Plan of Care:Hemodynamics will remain stable., Cardiac rhythm will remain stable., Comfort level will be maintained., Respiratory function will remain adequate., Patient/ family verbilizes understanding of procedure., Procedure tolerated without complication., Recovers from procedure without complications.. 10:04:30 Patient received from Outpatients to IR Alert and oriented. Tansferred to table in Supine position. 10:04:32 Signed procedure consent form obtained from patient. 10:04:34 Warm blankets applied, and jessica hugger turned on for patient comfort. 10:04:34 Correct patient and procedure confirmed by team. 10:04:35 ECG and BP/O2 sat monitors applied to patient. 10:04:35 Vital chart was started 10:04:37 Baseline sample Acquired. 10:04:42 Full Disclosure recording started 10:04:42 - 10:04:47 H&P Date Dictated: 08/10/2020 H&P Addendum completed by physician on day of procedure. (MUST COMPLETE FOR ALL OUTPATIENTS). 10:04:49 Pre-procedure instructions explained to patient. 10:04:49 Pre-op teaching completed and patient verbalized understanding. 10:04:52 Patient NPO since Dinner. 10:05:20 Patient allergic to Other allergyiodine, morphine 10:05:23 Is the patient allergic to Iodine/contrast media? No. 10:05:25 Was the patient premedicated? Yes 10:05:26 Is patient on blood thinner?Yes 10:05:29 Patient diabetic? No. 10:05:31 - 10:05:35 ----Pre-sedation anethsthesia assessment.---- 10:05:38 Previous problem with sedation/anesthesia? No ? 10:05:39 Snore? Yes 10:05:42 Sleep apnea? No 10:05:43 Deviated septum? No 10:05:44 Opens mouth fully? Yes 10:05:45 Sticks out tongue? Yes 10:09:18 Airway obstruction? Yes copd, emphysema 10:09:21 Dentures? No ? 10:09:24 Pre procedure: right dorsailis pedis pulse Doppler 10:09:27 Pre procedure: left dorsailis pedis pulse Inaccessible 10:09:29 Pre procedure: right posterior tibial pulse Doppler 10:09:32 Pre procedure: left posterior tibial pulse Doppler 10:09:41 IV patent on arrival in right hand with 0.9% NaCl at O. 10:09:48 Right groin area was prepped with chlora-prep and draped in sterile fashion 10:09:50 Alarms reviewed by Katie N. 10:09:50 Sharps counted by scrub and verified by RJanak. 10:09:51 - 10:15:39 Physician arrived 10:15:40 --------ALL STOP TIME OUT------ 10:15:40 Final Timeout: patient, procedure, and site verified with staff and physician. All members of the team are in agreement. 10:15:42 Right groin site verified by team. 10:16:33 2) 60-89 Mildly reduced kidney function, and other findings (as for stage 1) point to kidney disease. 10:17:26 Maximum allowable contrast dose (3.7 X eGFR X 0.75)177.6 ml. 10:17:30 Sedation plan: IV Moderate Sedation Medication:Versed, Fentanyl 10:20:05 Procedure started. 10:20:07 Versed 1 mg I.V. was administered by Desiree Moss RN; for sedation; Verbal order read back and verified. 10:20:08 Local anesthetic to right femoral artery with Lidocaine 1% by Dillan Diaz MD.INITIAL ACCESS ONLY 10:20:13 Access obtained with 4Fr micropunture. 10:20:37 Fentanyl 50 mcg I.V. was administered by Desiree Moss RN; for sedation; Verbal order read back and verified. 10:21:05 Arterial access obtained using ultrasound guidance. 10:23:48 A 5 Fr sheath was inserted into the Right Femoral artery 10:23:57 CXI Catheter 90cm ([id number]) opened to sterile field. 10:24:23 Heparin Bolus 3000 units I.V. was administered by Desiree Moss RN; used for procedure; Verbal order read back and verified. 10:24:51 Lidocaine 1% 20ml vial added to field was administered by Desiree Moss RN; used for procedure; Verbal order read back and verified. 10:25:04 Heparin Flush Bag (1000units/500ml NS) 2 bags added to field was administered by Desiree Moss RN; used for procedure; Verbal order read back and verified. 10:26:04 Versed 0.5 mg I.V. was administered by Desiree Moss RN; for sedation; Verbal order read back and verified. 10:26:18 Fentanyl 25 mcg I.V. was administered by Desiree Moss RN; for sedation; Verbal order read back and verified. 10:28:21 SHEATH 6FR Destination (RSR01) opened to sterile field. 10:28:33 Sheath upsized to a 6 Fr Mid-Length. 10:34:11 GLIDE WIRE ANGLE 260cm ([id number]) opened to sterile field. 10:40:22 Inflate balloon Inflation number: 1 A NANOCROSS ELITE 3.0-2.5X210 ([id number]) was prepped and advanced across the Proximal Femoral, Left -1, then inflated to 0 LUCINDA for 0:00 (min:sec) -1. 10:43:49 SPIDER EMBOLIC PROTECTION DEVICE 3MM ([id number]) opened to sterile field. 10:44:00 CHOICE PT Extra Support J 300cm guide wire ([id number]) opened to steril e field. 10:52:46 Hawkone Medium Atherectomy System (H1-M) opened to sterile field. 10:58:31 Nitroglycerin IC/IA 300 mcg I.A. was administered by Dillan Diaz MD; used for procedure; Verbal order read back and verified. 11:01:13 Versed 0.5 mg I.V. was administered by Dillan Diaz MD; for sedation; Verbal order read back and verified. 11:01:21 Fentanyl 25 mcg I.V. was administered by Dillan Diaz MD; for sedation; Verbal order read back and verified. 11:12:53 Inflate balloon Inflation number: 2 A INPACT ADMIRAL 6 X 250 X 130 ([id number]) was prepped and advanced across the Proximal Femoral, Left -1, then inflated to 0 LUCINDA for 0:00 (min:sec) -1. 11:14:08 Heparin Bolus 1500 units I.V. was administered by Desiree Moss RN; used for procedure; Verbal order read back and verified. 11:22:50 Fentanyl 50 mcg I.V. was administered by Desiree Moss RN; for sedation; Verbal order read back and verified. 11:23:01 Versed 1 mg I.V. was administered by Desiree Moss RN; for sedation; Verbal order read back and verified. 11:27:52 Inflate balloon Inflation number: 3 A IN.PACT Admiral 6 x 150 x 130 DCB balloon ([id number]) was prepped and advanced across the Proximal Femoral, Left -1, then inflated to 0 LUCINDA for 0:00 (min:sec) -1. 11:39:10 Place stent Inflation Number: 4 A Everflex 6 x 100 x 120 Stent was prepped and advanced across the Proximal Femoral, Left -1. The stent was deployed at 0 LUCINDA for 0:00 (min:sec) -1. 11:40:09 Fentanyl 50 mcg I.V. was administered by Desiree Moss RN; for sedation; Verbal order read back and verified. 11:42:36 Place stent: A EVERFLEX 7 X 150 X 120 STENT ([id number]) was prepped and advanced across the Proximal Femoral, Left . The stent was deployed. 11:43:42 Inflate balloon Inflation number: 6 A EVERCROSS 7 X 200 X 135 ([id number]) was prepped and advanced across the Proximal Femoral, Left , then inflated to. 11:48:34 Versed 1 mg I.V. was administered by Desiree Moss RN; for sedation; Verbal order read back and verified. 12:01:54 EVERFLEX 6 x 60 x 120 Stent ([id number]) was deployed across Distal Femoral, Left . 12:04:31 Integrilin (Bolus 2mg/ml) 5 ml IA was administered by Dillan Diaz MD ; used for procedure; Verbal order read back and verified. 12:04:49 COPILOT Valve Control ([id number]) opened to sterile field. 12:09:03 Fentanyl 50 mcg I.V. was administered by Desiree Moss RN; for sedation; Verbal order read back and verified. 12:09:15 Versed 1 mg I.V. was administered by Desiree Moss RN; for sedation; Verbal order read back and verified. 12:11:52 Sheath upsized to a 6 Fr Short. 12::52 Sheath removed intact; hemostasis achieved with Mynx Jonatan 6Fr/7Fr to the Right Femoral artery. 12:15:45 Procedure ended.(Physican Out) 12:21:07 Fluoroscopy time 32.40 minutes. 12:21:10 Fluoroscopy dose: 244 mGy 12:21:10 Flurop Dose total: 244 12:21:16 Contrast amount:Isovue 300 125ml. 12:21:19 Maximum allowable dose exceeded? No. 12:21:20 Sharps counted by scrub and verified by R.N. 12:21:27 Post right femoral artery:stable, clean and dry 12:21:29 Post-op/insertion site Right Femoral artery dressed using a 4 x 4 and Tegaderm. 12:21:31 Post procedure instruction explained to patient.Patient verbalizes understanding. 12:21:33 Procedure and supply charges have been captured, reviewed, submitted an d are correct. 12:24:24 Vital chart was stopped 12::27 Report given to Outpatients. 12:24:30 Procedure ended. 12:24:30 Full Disclosure recording stopped Intervention Summary Intervention Notes Time ActionType Lesion and Equipment Used Action# Pressure Duration Attributes 10:40:22 Inflate Proximal NANOCROSS ELITE 1 0 00:00 balloon Femoral, 3.0-2.5X210 Left ([id number]) 11:12:53 Inflate Proximal INPACT ADMIRAL 6 X 2 0 00:00 balloon Femoral, 250 X 130 Left ([id number]) 11:27:52 Inflate Proximal IN.PACT Admiral 6 3 0 00:00 balloon Femoral, x 150 x 130 DCB Left balloon ([id number]) 11:39:10 Place stent Proximal Everflex 6 x 100 x 4 0 00:00 Femoral, 120 Stent Left 11:42:36 Place stent Proximal EVERFLEX 7 X 150 X 5 0 00:00 Femoral, 120 STENT Left ([id number]) 11:43:42 Inflate Proximal EVERCROSS 7 X 200 6 0 00:00 balloon Femoral, X 135 Left ([id number]) 12:01:54 Deploy self Distal EVERFLEX 6 x 60 x 1 expanding Femoral, 120 Stent stent Left ([id number]) Device Usage Item Name Manufacture Quantity Catalog Number [facility] Part Cur rent Minimal Lot# / Charge Number Stock Stock Serial# Code Bag Decanter Microtek 1 [id number] 88159 982 843 5 () [employer] Sterile Cardinal 1 [id number] 997 507 5 Angiographic Pack Health Tegaderm 4 x 4 3M 1 1626W 966083 037256 988 894 5 (1626W) DIAGNOSTIC IMT Elwin 2 [id number] 640215 318585 996 53 5 5Fr Catheter Scientific ([id number]) SHEATH 5FR Terumo 1 [id number] 856050 266717 993 032 5 [place] (SSX891) SAGE 260 wire Offerboxx 1 [id number] 812841 396396 999 293 5 (L92057) BENTSON 145cm Offerboxx 1 [id number] 969617 999 488 5 wire (W10253) ROADRUNNER .035 Offerboxx 1 [id number] 605011 922722 999 679 5 260 glide wire (R15323) MICROPUNCTURE 4FR Offerboxx 1 L24220 498244 373990 999 605 5 [employer] (C25061) CXI SUPPORT .035 Offerboxx 1 L36565 653336 343705 999 701 5 [id number] 135 CM STR catheter ([id number]) ACIST Syringe Acist 1 69942 037239 571433 984 688 20 (03467) Medical Systems Inc ACIST Hand Acist 1 50981 476691 604289 985 120 5 Control (46755) [employer] Systems [employer] ACIST Manifold Acist 1 46826 042456 748946 985 135 5 (37057) Medical Systems Inc CXI Catheter 90cm Offerboxx 1 [id number] 128532 389631 999 838 5 ([id number]) SHEATH 6FR Terumo 1 RSR01 221428 95211 999 420 5 Destination (RSR01) GLIDE WIRE ANGLE Terumo 1 FA6734 688912 695150 999 261 5 260cm (BA5019) SPIDER EMBOLIC Medtronic 1 [id number]-[id number] 122349 999 974 5 PROTECTION DEVICE 3MM ([id number]) CHOICE PT Extra [place]win 1 [id number] 998 674 5 Support J 300cm Scientific guide wire ([id number]) Hawkone Medium Medtronic 1 H1-M 384155 999 33924 5 [id number] Atherectomy System (H1-M) NANOCROSS ELITE Medtronic 1 [id number] 548410 999 987 1 3.0-2.5X210 ([id number]) INPACT ADMIRAL 6 Medtronic 1 [id number] 470535 8064583 999 996 1 X 250 X 130 ([id number]) IN.PACT Admiral 6 Medtronic 1 [id number] 500520 2790579 999 965 5 x 150 x 130 DCB balloon ([id number]) Everflex 6 x 100 Medtronic 1 [id number] 092809 758475 999 996 1 [id number] x 120 Stent [id number] EVERFLEX 7 X 150 Medtronic 1 [id number] 766535 728063 999 995 5 [id number] X 120 STENT [id number] ([id number] EVERCROSS 7 X 200 Medtronic 1 [id number] 567474 917073 999 992 1 X 135 ([id number]) EVERFLEX 6 x 60 x Medtronic 1 [id number] 764973 094515 999 988 5 120 Stent ([id number]) COPILOT Valve Phillip 1 [id number] 299327 391727 999 700 5 Control (0360708) Vascular Signature Audit [place] Stage Time Signature Unsigned Intra-Procedure 08/10/2020 MARGARETH GOODWIN RT 12:24:58 PM (R) [facility] [address] [place] [address]
[~2020-08-10 07:45] MED LIST changes: +ELIQUIS5 MG PO; +NICODERM CQ1 EAC3 TRANSDERM
[2020-08-10 08:06] LABS: BASOPHILS 0.4 % (0-2); EOSINOPHILS 0 % (0-7); HEMATOCRIT 38.3 % (36.0-48.0); HEMOGLOBIN 11.4 g/dL (12-16); IMMATURE GRANULOCYTES 0.2 % (0-5); LYMPHOCYTE ABS# 0.69 10x3/uL (1.18-3.74); LYMPHOCYTES 13.3 % (15-50); MCHC 29.8 g/dL (31.0-37.0); MEAN PLATELET VOLUME 11.5 fL (7.4-10.4); MONOCYTES 1.9 % (2-11); NEUTROPHIL ABS# 4.36 10x3/uL (1.56-6.13); NEUTROPHILS 84.2 % (40-80); RBC 4.56 10x6/uL (4.00-5.40); RDW 16.1 % (11.5-14.5); WBC 5.2 10x3/uL (4.8-10.8)
[2020-08-10 08:08] LABS: PLATELET COUNT 300 10x3/uL (130-400)
[2020-08-10 08:21] LABS: ANION GAP 13.1 mmol/L (8-16); APTT 24.5 SECONDS (22.8-39.4); CARBON DIOXIDE 26.6 mmol/L (21.0-32.0); CREATININE - SERUM 0.9 mg/dL (0.6-1.3); INR 1.05 (0.85-1.17); POTASSIUM - SERUM 4.7 mmol/L (3.5-5.1); PROTIME 12.7 SECONDS (11.6-15.0)
[2020-08-10 09:14] VITALS: BP 108/67; Ht 170.2 cm; Wt 56.8 kg
--- NOTE | 2020-08-10 12:49 | NUR ---
1240 SEE POST PROCEDURE CHECKLIST FOR VITAL SIGN TRENDS. 1245 ICED COFFEE AND WATER SERVED, ICE PACK FOR GROIN.
== END 2020-08-10 16:40 | disposition home or self-care (01) ==
LOC: D.RAD 07:45
PROVIDERS: ATTEND Radiology Diagnostic Radiology
DX: I70.212 Atherosclerosis of native arteries of extremities with intermittent claudication, left leg (principal); I10 Essential (primary) hypertension; G43.909 Migraine, unspecified, not intractable, without status migrainosus; J44.9 Chronic obstructive pulmonary disease, unspecified; M54.9 Dorsalgia, unspecified; F17.200 Nicotine dependence, unspecified, uncomplicated

== ENCOUNTER → 2020-08-19 15:51 | Outpatient (CLI) | payer MEDICARE, BC ==
[2020-08-10 09:14] VITALS: BMI 19.6
== END | disposition home or self-care (01) ==
LOC: D.US 15:30
PROVIDERS: ATTEND Radiology Diagnostic Radiology
DX: R60.0 Localized edema (principal); M79.672 Pain in left foot; I82.4Z2 Acute embolism and thrombosis of unspecified deep veins of left distal lower extremity

== ENCOUNTER → 2020-10-12 14:10 | Outpatient (CLI) | payer MEDICARE, BC ==
[2020-08-10 09:14] VITALS: BMI 19.6
== END | disposition home or self-care (01) ==
LOC: D.US 14:10
PROVIDERS: ATTEND Internal Medicine Interventional Cardiology
DX: I65.21 Occlusion and stenosis of right carotid artery (principal)